=== PATIENT | male | born 1950 | race Caucasian/White ===

== ENCOUNTER 2020-09-22 09:59 | Inpatient (IN) | payer MEDICARE, SELFPAY ==
[2020-09-22] VITALS (8 sets, daily range): BP systolic 105–130; BP diastolic 53–93; PULSE 74–91; RESP 18–26; TEMP 36.3–38.3; O2SAT 90–95; BMI 25.4
--- NOTE | ~2020-09-22 | XR_ITS ---
EXAMINATION: XR chest 1V portable DATE: 09/22/2020 13:07 INDICATION: Shortness of breath. TECHNIQUE: A single frontal view of the chest was obtained. COMPARISON: Chest CT 10/30/15 FINDINGS: There are airspace and interstitial opacities in all lung zones bilaterally with a peripher al predominance with relative sparing of the lung apices. No pleural effusion or pneumothorax. The he art size is normal. There is a left subclavian port with tip in right atrium. IMPRESSION: 1. Diffuse lung disease, consistent with COVID-19 pneumonia. Reviewed, dictated and finalized at location A. APPLICATION DEVELOPER
--- NOTE | ~2020-09-22 | XR_ITS ---
EXAMINATION: XR chest 1V portable DATE: 09/30/2020 15:59 INDICATION: Transient alteration of awareness. TECHNIQUE: A single frontal view of the chest was obtained. COMPARISON: Chest single view 09/27/2020, 09/22/2020, chest CT 10/30/15 FINDINGS: There are airspace and interstitial opacities in all lung zones bilaterally. No pleural eff usion or pneumothorax. The heart size is normal. There is a left subclavian port with tip in right at rium. IMPRESSION: 1. Worsened diffuse lung disease, consistent with COVID-19 pneumonia. Reviewed, dictated and finalized at location A. EL OPENER
--- NOTE | ~2020-09-22 | XR_ITS ---
EXAMINATION: XR chest 1V portable DATE: 09/27/2020 08:30 INDICATION: COVID pneumonia TECHNIQUE: 09/22/2020 COMPARISON: Chest radiograph dated 09/22/2020 FINDINGS: Again seen are bilateral peripheral predominant reticular and patchy groundglass opacities throughout both lungs. There appears be slight improvement in the left mid to lower lung zone. No pleural effus ion or pneumothorax. The cardiomediastinal silhouette is normal. Left subclavian central venous port catheter with distal tip near the superior cavoatrial junction. IMPRESSION: 1. Diffuse bilateral lung disease consistent with COVID 19 pneumonia with slight improvement in the l eft mid and lower lung zones. Reviewed, dictated and finalized at location A. TIC MAKER IMPRESSION: 1. Diffuse bilateral lung disease consistent with COVID 19 pneumonia with sligh t improvement in the left mid and lower lung zones.
--- NOTE | 2020-09-22 11:17 | ECG_ITS ---
Measurements Intervals [place] Rate: 100 P: -66 PA: 113 QRS: 24 QRSD: 92 T: 56 QT: 315 QTc: 407 Interpretive Statements ECTOPIC ATRIAL TACHYCARDIA POSSIBLE LEFT ATRIAL ENLARGEMENT DELAYED PRECORDIAL R/S TRANSITION BASELINE WANDER- I, II, III, AVR, AVL, AVF ABNORMAL ECG Electronically Signed On 09-22-2020 11:25:32 BACK UP WORKER by Sandip Tolentino D.O.
--- NOTE | 2020-09-22 12:29 | ED.SOB ---
HPI - SOB/Dyspnea General Chief Complaint: Shortness of Breath/Dyspnea Stated Complaint: COVID+ LOW O2 SATS Time Seen by Provider: 09/22/20 10:19 Source: patient Mode of arrival: other ([facility] de[facility]) Limitations: no limitations History of Present Illness HPI Narrative: A 70-year-old male presents to the emergency department with complaints of fever, chills, shortness of breath and cough. Patient also notes that he is having headache and body aches. Patient notes that he was diagnosed as Covid positive. He states that his shortness of breath has been increasing. Patient states that he is concerned because he has a history of lung cancer and has had a partial lobectomy of his left lung. Related Data Allergies Allergy/AdvReac Type Severity Reaction Status Date / Time adhesive Allergy Unknown RASH Unverified 10/14/14 11:47 strawberry Allergy Unknown TONGUE Unverified 10/14/14 11:47 SWELLING Review of Systems Review of Systems: Narrative: CONSTITUTIONAL: Endorses fever, chills, fatigue and general malaise. EYES: Denies visual changes, redness, or discharge. ENT: Denies rhinorrhea, congestion, sore throat, or otalgia. CARDIOVASCULAR: Denies chest pain, palpitations, or edema. RESPIRATORY: Endorses cough and dyspnea. GASTROINTESTINAL: Denies abdominal pain, nausea, vomiting, or diarrhea. GENITOURINARY: Denies dysuria or hematuria. SKIN: Denies rash or itching. MUSCULOSKELETAL: Endorses general myalgias. NEUROLOGIC: Denies headache, numbness, dizziness, or weakness. PSYCHIATRIC: Denies anxiety or depression. Exam Narrative: Exam Narrative: GENERAL: Well-appearing, well-nourished, and in no acute distress. HEAD: Normocephalic, atraumatic. EYES: PERRLA and EOMI. ENT: Nares clear, no rhinorrhea or epistaxis. Mucous membranes moist. Oropharynx without tonsillar hypertrophy exudate or other lesions. Bilateral TMs pearly sawant nonbulging NECK: Supple. No adenopathy or masses. No carotid bruits or JVD CHEST: Clear to auscultation. No respiratory distress. No wheezes rales or rhonchi HEART: Regular rate and rhythm. No murmur heard. Normal peripheral pulses. ABDOMEN: Soft, nontender, nondistended, normal active bowel sounds. EXTREMITIES: Normal range of motion. No edema. SKIN: Warm, dry, no rash. NEURO: No focal deficits. Alert and oriented x3. PSYCH: Normal mood and affect. Course Reevaluation(s) Reevaluation #1: Patient complaining that his oxygen was turned up too high. I explained to him that even as high as his oxygen is his pulse ox is in the low 90s. Patient satisfied with this answer states that he would tolerate it. Informed him that because of his oxygen demand he will be staying in the hospital. Time: 14:40 Consultations Consultation #1: Presentation, evaluation and work-up discussed with [facility] hospitalist UL[facility]. She agrees to accept patient for admission for further work-up and evaluation. Time: 14:46 Vital Signs Vital signs: Vital Signs Temperature 38.3 C H 09/22/20 10:39 Pulse Rate 91 09/22/20 10:39 Respiratory Rate 21 H 09/22/20 10:39 Blood Pressure 115/69 09/22/20 10:39 Pulse Oximetry 91 09/22/20 10:39 Temperature 38.3 C H 09/22/20 10:39 Pulse Rate 90 09/22/20 13:01 Respiratory Rate 23 H 09/22/20 13:01 Blood Pressure 130/70 09/22/20 13:01 Pulse Oximetry 90 09/22/20 13:01 MDM - SOB/Dyspnea MDM Narrative Medical decision making narrative: In brief this is a 70-year-old male who presented to the emergency department with complaints of shortness of breath. Patient was known to be Covid positive. He had been tolerating well up until this point. His oxygen demands have increased. Patient was worked up and evaluated, treated symptomatically and unfortunately only continued to decline in require more oxygen. He will require further admission to the hospital for oxygen administration and closer monitoring. Medical Records Attestation: I reviewed the patient's medical records. Lab
[2020-09-22] MEDS: DEXAMETHASONE SOD PHOS INJ 4 MG/ML VIAL 6 MG IV PUSH (12:31)
[2020-09-22] MEDS: ALBUTEROL SULFATE NEB 2.5 MG/0.5 ML INH 5 MG INHALATION (12:54)
[2020-09-22] MEDS: IPRATROPIUM BR 0.02% INH SOLN 0.5 MG/2.5 ML VIAL 1 MG INHALATION (12:55)
[2020-09-22 13:36] LABS: Basophils Percent Auto 0.2 % (0.2-1.2); Hematocrit 42.8 % (42.0-52.0); Hemoglobin 14.8 g/dL (14.0-18.0); Lymphocytes Absolute Auto 0.78 K/mm3 (0.9-3.2); Lymphocytes Percent Auto 8.2 % (18.3-44.2); Mean Corpuscular HGB Conc 34.6 g/dl (32-36); Mean Corpuscular Volume 83.9 fl (80-100); Mean Platelet Volume 9.3 fl (7.4-10.4); Monocytes Absolute Auto 0.7 K/mm3 (0.1-0.6); Monocytes Percent Auto 7.3 % (2.6-8.5); Neutrophils Percent Auto 83.3 % (45.5-73.1); Platelet Count Result 216 k/mm3 (150-375); Red Cell Distribution Width 13.8 % (11.5-14.5); White Blood Count 9.6 K/mm3 (4.5-10.0)
[2020-09-22 13:50] LABS: Alanine Aminotransferase 18 U/L (4-50); Albumin Level 3.5 g/dL (3.5-5.1); Alkaline Phosphatase 88 U/L (38-126); Anion Gap 8 mmol/L (8-16); Aspartate Amino Transferase 48 U/L (17-59); Bilirubin,Total 0.8 mg/dL (0.2-1.3); Blood Urea Nitrogen 18 mg/dL (9-20); Calcium 8.1 mg/dL (8.4-10.2); Carbon Dioxide 27 mmol/L (22-30); Chloride 95 mmol/L (98-107); Estimated CRCL calculation 65 ml/min; Estimated Glomerular Filt Rate > 60; Glucose 109 mg/dL (75-110); Potassium 3.3 mmol/L (3.4-5.0); Sodium 130 mmol/L (137-145)
--- NOTE | 2020-09-22 14:00 | PC.NURSE ---
This RN into pts room. Pt O2 was at 88% at 4L.( respiratory had placed pt on 4L) This RN increased pts O2 to 5L going to 91%
--- NOTE | 2020-09-22 17:02 | PC.NURSE ---
Called to give report on pt. Was told by Maya that nurse was in middle of a transfer and will call me back
--- NOTE | 2020-09-22 17:44 | ADMGEN ---
This patient, Abdifatah Sun, was admitted to [facility] Surg Room 328-01. Patient/family oriented to hospital policies and general routines including ID bracelet, bed and alarms, visiting hours, pain management, procedures, bathroom and other care routines, personal items, smoking policy, room service/diet, and visiting hours. Information on how to activate the Rapid Response Team has been discussed. Patient/Family are encouraged to report perceived risks to care and to ask questions if they do not understand what they are told or what they should do.
--- NOTE | 2020-09-22 18:00 | PM.IMHP ---
H&P: HPI History of Present Illness Date/Time: 09/22/20 18:00 Chief Complaint: Cough and shortness of breath. Narrative: This is a 70-year-old male smoker with history of bladder cancer status post chemotherapy, lung cancer status post resection, COPD, and hypertension who presented to the emergency department earlier today via the newspaper writer's department for evaluation of cough and shortness of breath. He is currently incarcerated and there have been numerous cases of COVID at that facility. The patient was diagnosed with COVID sometime last week and unfortunately he continues to feel worse. Symptoms include headache, body aches, fever, chills, nonproductive cough, and shortness of breath. He has also had decreased appetite, a decreased sense of taste, and some diarrhea. He denies chest pain, pleuritic pain, palpitations, and vomiting. Review of Systems Review of Systems: Narrative: 12 systems were reviewed with pertinent positives and negatives as per HPI. He has a mild headache. No vertigo. Chronic mild tinnitus. No dysphagia or concerns for aspiration. Except as documented, all other systems were reviewed and are negative. [facility] Past Medical History Medical History (Updated 09/22/20 @ 21:51 by Deisy Leon PA-C) Abdominal aortic aneurysm Status post endovascular repair. Anxiety Benign prostatic hyperplasia Bladder cancer Status post TURBT and chemotherapy. Chronic obstructive pulmonary disease Gout Hyperlipidemia Hypertension Kidney stones Lung cancer Status post partial lobectomy. Osteoarthritis Spinal stenosis Surgical History Surgical History (Updated 09/22/20 @ 21:40 by Deisy Leon PA-C) History of bladder surgery Resection of bladder tumor. History of carpal tunnel release of both wrists History of cystoscopy History of decompression of ulnar nerve History of endovascular stent graft for abdominal aortic aneurysm History of lithotripsy Status post partial lobectomy of lung Family History Family History (Updated 09/22/20 @ 21:41 by Deisy Leon PA-C) Other Heart disease Hypertension Social History Social History (Updated 09/22/20 @ 21:42 by Deisy Leon PA-C) Social History: The patient lives in [place]. He smoked 1 to 2 packs of cigarettes a day for about 50+ years. No significant alcohol use. Uses medical marijuana. His daughter Nicole Bello is his healthcare power of attorney law clerk and he wishes to be a full code. Smoking status: Former smoker Tobacco type: cigarettes Smoking end date: 03/07/20 Alcohol intake: never Substance use: former Substance use type: marijuana Other substance usage details: medical marijuana Gender identity (if verbalized by the patient): Male Sexual Orientation (if Verbalized by the Patient): Straight or Heterosexual Spiritual care concerns: No Meds Home Medications and Allergies Home Medications Medication Instructions Recorded Confirmed Type allopurinol 300 mg DAILY 09/22/20 09/22/20 History alprazolam [Xanax] 1 mg PO TID 09/22/20 09/22/20 History atorvastatin 40 mg PO DAILY 09/22/20 09/22/20 History citalopram 20 mg PO DAILY 09/22/20 09/22/20 History hydrochlorothiazide 12.5 mg PO EVERY OTHER DAY 09/22/20 09/22/20 History hydrocodone-acetaminophen [Binger] 325 tablet PO PRN 09/22/20 09/22/20 History nortriptyline [Pamelor] 10 mg PO DAILY 09/22/20 09/22/20 History Allergies Allergy/AdvReac Type Severity Reaction Status Date / Time adhesive Allergy Unknown RASH Verified 09/22/20 18:03 strawberry Allergy Unknown TONGUE Verified 09/22/20 18:03 SWELLING Vital Signs Vital Signs - 24 hr 09/22/20 10:39 09/22/20 12:30 09/22/20 12:55 Temperature 100.9 F H Pulse Rate 91 88 88 Respiratory Rate 21 H 24 H 26 H Blood Pressure 115/69 112/93 H Pulse Oximetry 91 92 09/22/20 13:01 09/22/20 15:42 09/22/20 17:58 Temperature 99.0 F Pulse Rate 90 87 84 Respiratory Rate 23 H 25 H 20 B
[2020-09-22 18:10] LABS: Troponin I 0.014 ng/mL (0.000-0.034)
[2020-09-22 20:52] LABS: Troponin I < 0.012 ng/mL (0.000-0.034)
[2020-09-22] MEDS: POTASSIUM CHLORIDE 20 MEQ TABLET PO (22:49)
[2020-09-22] MEDS: HYDROcodone/acetaminophen (*CRX) 7.5-325 MG TABLET 1 TAB PO (23:27)
[2020-09-23] VITALS (7 sets, daily range): BP systolic 110–126; BP diastolic 52–63; PULSE 62–87; RESP 16–20; TEMP 36.4–36.5; O2SAT 90–94
[2020-09-23] MEDS: REMDESIVIR 200 MG/NS 250 ML 200 MG/250 ML BAG 250 MG IVPB
[2020-09-23] MEDS: ALBUTEROL SULFATE (*SP) AEROSOL 1 PUFF 6 PUFF INHALATION ×5 (00:51→20:16)
[2020-09-23] MEDS: HYDROcodone/acetaminophen (*CRX) 7.5-325 MG TABLET 1 TAB PO ×2 (05:47→14:10)
[2020-09-23 06:14] LABS: Basophils Percent Auto 0.1 % (0.2-1.2); Hematocrit 40.3 % (42.0-52.0); Hemoglobin 13.8 g/dL (14.0-18.0); Immature Granulocyte Absolute 0.11 K/mm3 (0.00-0.031); Immature Granulocyte Percent A 1.3 % (0-0.5); Lymphocytes Absolute Auto 0.44 K/mm3 (0.9-3.2); Lymphocytes Percent Auto 5.3 % (18.3-44.2); Mean Corpuscular HGB Conc 34.2 g/dl (32-36); Mean Corpuscular Hemoglobin 28.9 pg (26-34); Mean Corpuscular Volume 84.3 fl (80-100); Mean Platelet Volume 9.7 fl (7.4-10.4); Monocytes Absolute Auto 0.7 K/mm3 (0.1-0.6); Monocytes Percent Auto 8.7 % (2.6-8.5); Neutrophils Percent Auto 84.6 % (45.5-73.1); Platelet Count Result 235 k/mm3 (150-375); Red Blood Count 4.78 M/mm3 (4.6-6.20); Red Cell Distribution Width 13.7 % (11.5-14.5); White Blood Count 8.3 K/mm3 (4.5-10.0)
[2020-09-23 07:15] LABS: Alanine Aminotransferase 20 U/L (4-50); Albumin Level 3.2 g/dL (3.5-5.1); Alkaline Phosphatase 75 U/L (38-126); Anion Gap 5 mmol/L (8-16); Aspartate Amino Transferase 45 U/L (17-59); Bilirubin,Total 0.6 mg/dL (0.2-1.3); Blood Urea Nitrogen 22 mg/dL (9-20); Calcium 8.1 mg/dL (8.4-10.2); Carbon Dioxide 28 mmol/L (22-30); Chloride 98 mmol/L (98-107); Estimated CRCL calculation 65 ml/min; Estimated Glomerular Filt Rate > 60; Glucose 171 mg/dL (75-110); Magnesium 2.4 mg/dL (1.6-2.3); Potassium 3.4 mmol/L (3.4-5.0); Sodium 131 mmol/L (137-145)
[2020-09-23 07:23] LABS: CRP 21.5 mg/dL (<1.0)
[2020-09-23] MEDS: DEXAMETHASONE 2 MG TABLET 6 MG PO (08:28)
[2020-09-23] MEDS: ALPRAZolam (*CRX) 0.5 MG TABLET 1 MG PO (08:28)
[2020-09-23] MEDS: NORTRIPTYLINE HCL 10 MG CAPSULE PO (08:29)
[2020-09-23] MEDS: ATORVASTATIN 40 MG TABLET PO (08:29)
[2020-09-23] MEDS: CITALOPRAM HYDROBROMIDE 20 MG TABLET PO (08:29)
[2020-09-23] MEDS: allopurinoL 300 MG TABLET BY MOUTH (08:29)
[2020-09-23 09:13] LABS: Lactate Dehydrogenase 1319 U/L (313-618)
--- NOTE | 2020-09-23 15:18 | PM.IMPN ---
Progress Note: A&P Assessment and Plan (1) Acute respiratory failure with hypoxia: Code(s): J96.01 - Acute respiratory failure with hypoxia Status: Acute (2) Pneumonia due to COVID-19 virus: Code(s): U07.1 - COVID-19; J12.82 - Pneumonia due to coronavirus disease 2018 Status: Acute Assessment and Plan: Pt is on remdesvir, steroids and oxygen Covid pneumonia as per CXR (3) Hyponatremia: Code(s): E87.1 - Hypo-osmolality and hyponatremia Status: Acute Assessment and Plan: sodium is 135 (4) Hypokalemia: Code(s): E87.6 - Hypokalemia Status: Resolved (5) Hypertension: Code(s): I10 - Essential (primary) hypertension Status: Acute Assessment and Plan: Bp medications have been corrected continue as before (6) Chronic obstructive pulmonary disease: Code(s): J44.9 - Chronic obstructive pulmonary disease, unspecified Status: Inactive Assessment and Plan: Pt is on a inhaler (7) Anxiety: Code(s): F41.9 - Anxiety disorder, unspecified Status: Acute Assessment and Plan: Pt is on Nortriptyline Subjective Date/time seen: 09/23/20 15:18 Interval history: 70-year-old male smoker with history of bladder cancer status post chemotherapy, lung cancer status post resection, COPD, and hypertension who presented to the emergency department earlier today via the [employer] consultant's department for evaluation of cough and shortness of breath. Covid positive. on 2 liters of oxygen. Review of Systems Review of Systems: All systems reviewed & are unremarkable except as noted in HPI and below Exam Narrative: Exam Narrative: General: Man chronically ill appearing Respiratory: Speaking in full sentences. Cardiovascular: Regular rate and rhythm with S1-S2. Gastrointestinal: Abdomen is soft, nontender, and nondistended with positive bowel sounds. Skin: Warm and dry. No rash or lesions on limited exam. Extremities: No cyanosis, clubbing, or edema. Left wrist and right ankle are in cuffs. Neurological: Alert. Cranial nerves 2-12 are grossly intact. No gross focal deficits to casual conversation. Psychiatric: Pleasant and cooperative with normal mood and affect. Judgment and insight intact. Objective Data Vital Signs Vital Signs: Vital Signs - 24 hr 09/22/20 15:42 09/22/20 17:58 09/22/20 20:00 Temperature 37.2 C 36.3 C L Pulse Rate 87 84 85 Respiratory Rate 25 H 20 18 Blood Pressure 124/77 127/70 106/53 L Pulse Oximetry 90 95 91 09/22/20 23:58 09/23/20 00:00 09/23/20 04:00 Temperature 36.4 C L 36.5 C Pulse Rate 74 82 87 Respiratory Rate 18 18 Blood Pressure 105/60 114/53 L Pulse Oximetry 91 94 09/23/20 08:00 09/23/20 12:00 09/23/20 13:00 Temperature 36.4 C 36.4 C L Pulse Rate 62 82 Respiratory Rate 18 16 Blood Pressure 120/62 110/63 Pulse Oximetry 90 94 93 Intake/Output Intake/Output: Intake & Output 09/20/20 09/21/20 09/22/20 09/23/20 23:59 23:59 23:59 23:59 Intake Total 240 1430 Output Total 100 Balance 240 1330 Meds/Results Medications: Active Medications Generic Name Dose Route Start Last Admin Trade Name Freq PRN Reason Stop Dose Admin Hydrocodone Bitart/Acetaminophen 1 tab 09/22/20 23:16 09/23/20 14:10 Hydrocodone/Acetaminophen (*Crx) 7.5-325 Mg Tablet PO 1 tab Q6H PRN Administration Pain Rated 7-10 Albuterol 6 puff 09/23/20 00:05 09/23/20 12:53 Albuterol Sulfate (*Sp) Aerosol 1 Puff INHALATION 6 puff QIDRT [facility] Administration Allopurinol 300 mg 09/23/20 08:00 09/23/20 08:29 Allopurinol 300 Mg Tablet BY MOUTH 300 mg DAILY@0800 [facility] Administration Alprazolam 1 mg 09/23/20 09:00 09/23/20 13:02 Alprazolam (*Crx) 0.5 Mg Tablet PO Not Given TID [facility] Atorvastatin Calcium 40 mg 09/23/20 09:00 09/23/20 08:29 Atorvastatin 40 Mg Tablet PO 40 mg DAILY [facility] Administration Citalopram Hydrobromide 20 mg
[2020-09-23] MEDS: ENOXAPARIN 40 MG/0.4 ML SYRINGE SUB-Q (20:15)
[2020-09-23] MEDS: REMDESIVIR 100 MG/NS 250 ML 100 MG/250 ML BAG 250 MG IVPB (22:05)
[2020-09-24] VITALS (7 sets, daily range): BP systolic 105–138; BP diastolic 47–63; PULSE 60–108; RESP 20; TEMP 36.4–36.6; O2SAT 90
--- NOTE | 2020-09-24 06:14 | PC.NURSE ---
Patient had been requesting [employer]. Officer allowed him one and stated that he didn't want him to have special privileges. A woman stating that she is his sister said she wanted to talk to him and that she typically talks to him nightly. military police officer again stated that he didn't want friends and family to know where he is. He rated his pain 4/10 at the highest, not qualifying for [place] according to parameters. Officer stated that he would prefer that he not get any opioids while he was here ether.
[2020-09-24 06:30] LABS: Alanine Aminotransferase 19 U/L (4-50); Albumin Level 3.1 g/dL (3.5-5.1); Alkaline Phosphatase 87 U/L (38-126); Anion Gap 1 mmol/L (8-16); Aspartate Amino Transferase 34 U/L (17-59); Bilirubin,Total 0.6 mg/dL (0.2-1.3); Blood Urea Nitrogen 27 mg/dL (9-20); Calcium 8.4 mg/dL (8.4-10.2); Carbon Dioxide 32 mmol/L (22-30); Chloride 102 mmol/L (98-107); Estimated CRCL calculation 65 ml/min; Estimated Glomerular Filt Rate > 60; Glucose 152 mg/dL (75-110); Potassium 3.7 mmol/L (3.4-5.0); Sodium 135 mmol/L (137-145)
[2020-09-24] MEDS: ALBUTEROL SULFATE (*SP) AEROSOL 1 PUFF 6 PUFF INHALATION ×4 (09:48→20:34)
[2020-09-24] MEDS: ENOXAPARIN 40 MG/0.4 ML SYRINGE SUB-Q ×2 (09:48→20:34)
[2020-09-24] MEDS: amLODIPine BESYLATE 2.5 MG TABLET PO (09:48)
[2020-09-24] MEDS: DEXAMETHASONE 2 MG TABLET 6 MG PO (09:48)
[2020-09-24] MEDS: HYDROcodone/acetaminophen (*CRX) 7.5-325 MG TABLET 1 TAB PO (10:32)
[2020-09-24] MEDS: TAMSULOSIN HCL 0.4 MG CAPSULE PO (12:45)
[2020-09-24] MEDS: REMDESIVIR 100 MG/NS 250 ML 100 MG/250 ML BAG 250 MG IVPB (21:20)
[2020-09-25] VITALS: BP 156/63; PULSE 83; PULSE 88; RESP 16; TEMP 36.3; O2SAT 92
[2020-09-25 04:00] VITALS: BP 120/63; PULSE 66; PULSE 93; RESP 18; TEMP 36; O2SAT 91
[2020-09-25 07:04] LABS: Alkaline Phosphatase 88 U/L (38-126); Anion Gap 9 mmol/L (8-16); Aspartate Amino Transferase 33 U/L (17-59); Bilirubin,Total 0.7 mg/dL (0.2-1.3); Blood Urea Nitrogen 23 mg/dL (9-20); Calcium 8.4 mg/dL (8.4-10.2); Carbon Dioxide 27 mmol/L (22-30); Chloride 102 mmol/L (98-107); Estimated CRCL calculation 71 ml/min; Estimated Glomerular Filt Rate > 60; Glucose 117 mg/dL (75-110); Potassium 3.6 mmol/L (3.4-5.0); Sodium 138 mmol/L (137-145)
[2020-09-25 07:05] LABS: Alanine Aminotransferase 22 U/L (4-50)
[2020-09-25 08:00] VITALS: BP 133/69; PULSE 68; PULSE 90; RESP 18; TEMP 36.4; O2SAT 90
[2020-09-25] MEDS: ALBUTEROL SULFATE (*SP) AEROSOL 1 PUFF 6 PUFF INHALATION ×4 (08:11→21:12)
[2020-09-25] MEDS: DEXAMETHASONE 2 MG TABLET 6 MG PO (08:15)
[2020-09-25] MEDS: amLODIPine BESYLATE 2.5 MG TABLET PO (08:15)
[2020-09-25] MEDS: TAMSULOSIN HCL 0.4 MG CAPSULE PO (08:15)
[2020-09-25] MEDS: ENOXAPARIN 40 MG/0.4 ML SYRINGE SUB-Q ×2 (08:15→21:13)
[2020-09-25] MEDS: FLUTICASONE PROP 110 MCG INHALER 12 GM (*SP) 2 PUFF INHALATION ×2 (08:16→21:14)
[2020-09-25] MEDS: HYDROcodone/acetaminophen (*CRX) 7.5-325 MG TABLET 1 TAB PO ×2 (10:20→17:38)
[2020-09-25 12:00] VITALS: BP 125/69; PULSE 73; PULSE 91; RESP 20; TEMP 36.7; O2SAT 92
[2020-09-25 16:00] VITALS: BP 128/78; PULSE 79; PULSE 82; RESP 18; TEMP 36.7; O2SAT 90
--- NOTE | 2020-09-25 17:14 | PM.IMPN ---
Progress Note: A&P Assessment and Plan (1) Acute respiratory failure with hypoxia: Code(s): J96.01 - Acute respiratory failure with hypoxia Status: Acute Assessment and Plan: Pt is needing 4-5 liters, advised prone positioning. Covid + lung cancer + COPD (2) Pneumonia due to COVID-19 virus: Code(s): U07.1 - COVID-19; J12.82 - Pneumonia due to coronavirus disease 2018 Status: Acute Assessment and Plan: Pt is on remdesvir, steroids and oxygen Covid pneumonia as per CXR Monitor lfts (3) Hyponatremia: Code(s): E87.1 - Hypo-osmolality and hyponatremia Status: Acute Assessment and Plan: sodium is 138, monitor kidney function (4) Hypokalemia: Code(s): E87.6 - Hypokalemia Status: Resolved (5) Hypertension: Code(s): I10 - Essential (primary) hypertension Status: Chronic Assessment and Plan: Bp medications have been corrected continue as before (6) Chronic obstructive pulmonary disease: Code(s): J44.9 - Chronic obstructive pulmonary disease, unspecified Status: Inactive Assessment and Plan: Pt is on a inhaler (7) Anxiety: Code(s): F41.9 - Anxiety disorder, unspecified Status: Chronic Assessment and Plan: Pt is on Nortriptyline Subjective Date/time seen: 09/25/20 17:14 Interval history: 70-year-old male smoker with history of bladder cancer status post chemotherapy, lung cancer status post resection, COPD, and hypertension who presented to the emergency department earlier today via the yield loss inspector's department for evaluation of cough and shortness of breath. Covid positive. pt is on oxygen at 5 liters of oxygen, on steroids on 3rd day of remdesivir, advised prone positioning. Review of Systems Review of Systems: All systems reviewed & are unremarkable except as noted in HPI and below Exam Narrative: Exam Narrative: General: Man chronically ill appearing Respiratory: Speaking in full sentences. Cardiovascular: Regular rate and rhythm with S1-S2. Gastrointestinal: Abdomen is soft, nontender, and nondistended with positive bowel sounds. Skin: Warm and dry. No rash or lesions on limited exam. Extremities: No cyanosis, clubbing, or edema. Left wrist and right ankle are in cuffs. Neurological: Alert. Cranial nerves 2-12 are grossly intact. No gross focal deficits to casual conversation. Psychiatric: Pleasant and cooperative with normal mood and affect. Judgment and insight intact. Objective Data Vital Signs Vital Signs: Vital Signs - 24 hr 09/24/20 20:00 09/25/20 00:00 09/25/20 04:00 Temperature 36.4 C 36.3 C L 36.0 C L Pulse Rate 64 88 93 Respiratory Rate 20 16 18 Blood Pressure 126/60 156/63 H 120/63 Pulse Oximetry 90 92 91 09/25/20 08:00 09/25/20 12:00 09/25/20 16:00 Temperature 36.4 C 36.7 C Pulse Rate 68 73 79 Respiratory Rate 18 20 Blood Pressure 133/69 125/69 Pulse Oximetry 90 92 Intake/Output Intake/Output: Intake & Output 09/22/20 09/23/20 09/24/20 09/25/20 23:59 23:59 23:59 23:59 Intake Total 240 2710 2720 440 Output Total 600 200 300 Balance 240 2110 2520 140 Meds/Results Medications: Active Medications Generic Name Dose Route Start Last Admin Trade Name Freq PRN Reason Stop Dose Admin Hydrocodone Bitart/Acetaminophen 1 tab 09/22/20 23:16 09/25/20 10:20 Hydrocodone/Acetaminophen (*Crx) 7.5-325 Mg Tablet PO 1 tab Q6H PRN Administration Pain Rated 7-10 Albuterol 6 puff 09/23/20 00:05 09/25/20 12:20 Albuterol Sulfate (*Sp) Aerosol 1 Puff INHALATION 6 puff QIDRT [facility] Administration Albuterol 2 puff 09/23/20 17:45 Albuterol Sulfate (*Sp) Aerosol 1 Puff INHALATION Q6H PRN Shortness Of Breath Amlodipine Besylate 2.5 mg 09/24/20 09:00 09/25/20 08:15 Amlodipine Besylate 2.5 Mg Tablet PO 2.5 mg DAILY [facility] Administration Dexamethasone 6 mg 09/23/20 08:00 09/25/20 08:15 Dexamethaso
--- NOTE | 2020-09-25 17:16 | PM.IMPN ---
Progress Note: A&P Assessment and Plan (1) Acute respiratory failure with hypoxia: Code(s): J96.01 - Acute respiratory failure with hypoxia Status: Acute Assessment and Plan: Pt is needing 4 liters, advised prone positioning. Covid + lung cancer + COPD (2) Pneumonia due to COVID-19 virus: Code(s): U07.1 - COVID-19; J12.82 - Pneumonia due to coronavirus disease 2018 Status: Acute Assessment and Plan: Pt is on remdesvir, steroids and oxygen Covid pneumonia as per CXR Monitor lfts (3) Hyponatremia: Code(s): E87.1 - Hypo-osmolality and hyponatremia Status: Acute Assessment and Plan: sodium is 135, monitor kidney function (4) Hypokalemia: Code(s): E87.6 - Hypokalemia Status: Resolved (5) Hypertension: Code(s): I10 - Essential (primary) hypertension Status: Chronic Assessment and Plan: Bp medications have been corrected continue as before (6) Chronic obstructive pulmonary disease: Code(s): J44.9 - Chronic obstructive pulmonary disease, unspecified Status: Inactive Assessment and Plan: Pt is on a inhaler (7) Anxiety: Code(s): F41.9 - Anxiety disorder, unspecified Status: Chronic Assessment and Plan: Pt is on Nortriptyline Subjective Date/time seen: 09/25/20 17:16 Interval history: 70-year-old male smoker with history of bladder cancer status post chemotherapy, lung cancer status post resection, COPD, and hypertension who presented to the emergency department earlier today via the hris specialist's department for evaluation of cough and shortness of breath. Covid positive. pt is on oxygen and 4 liters of oxygen and on remdesivir day 2 continue. Advised prone positioning. Pt looks unwell with cough and sob. Review of Systems Review of Systems: All systems reviewed & are unremarkable except as noted in HPI and below Exam Const: General: cooperative and healthy appearing; No in distress Nutritional Appearance: overweight Orientation/consciousness: oriented to person HENMT: Head: normal to inspection Resp: Effort & Inspection: no respiratory distress GI: Inspection: normal to inspection GI Palp: No abdominal tenderness, No Guarding due to palpation present (GI) and No Hepatomegaly present Auscultation: normal bowel sounds Neuro: General: oriented to person Objective Data Vital Signs Vital Signs: Vital Signs - 24 hr 09/24/20 20:00 09/25/20 00:00 09/25/20 04:00 Temperature 36.4 C 36.3 C L 36.0 C L Pulse Rate 64 88 93 Respiratory Rate 20 16 18 Blood Pressure 126/60 156/63 H 120/63 Pulse Oximetry 90 92 91 09/25/20 08:00 09/25/20 12:00 09/25/20 16:00 Temperature 36.4 C 36.7 C Pulse Rate 68 73 79 Respiratory Rate 18 20 Blood Pressure 133/69 125/69 Pulse Oximetry 90 92 Intake/Output Intake/Output: Intake & Output 09/22/20 09/23/20 09/24/20 09/25/20 23:59 23:59 23:59 23:59 Intake Total 240 2710 2720 440 Output Total 600 200 300 Balance 240 2110 2520 140 Meds/Results Medications: Active Medications Generic Name Dose Route Start Last Admin Trade Name Freq PRN Reason Stop Dose Admin Hydrocodone Bitart/Acetaminophen 1 tab 09/22/20 23:16 09/25/20 10:20 Hydrocodone/Acetaminophen (*Crx) 7.5-325 Mg Tablet PO 1 tab Q6H PRN Administration Pain Rated 7-10 Albuterol 6 puff 09/23/20 00:05 09/25/20 12:20 Albuterol Sulfate (*Sp) Aerosol 1 Puff INHALATION 6 puff QIDRT [facility] Administration Albuterol 2 puff 09/23/20 17:45 Albuterol Sulfate (*Sp) Aerosol 1 Puff INHALATION Q6H PRN Shortness Of Breath Amlodipine Besylate 2.5 mg 09/24/20 09:00 09/25/20 08:15 Amlodipine Besylate 2.5 Mg Tablet PO 2.5 mg DAILY [facility] Administration Dexamethasone 6 mg 09/23/20 08:00 09/25/20 08:15 Dexamethasone 2 Mg Tablet PO 10/02/20 08:01 6 mg DAILY@0800 [facility] Administration Enoxaparin Sodium 40 mg 09/23/20 21:00 09/25/20 08:15
[2020-09-25 20:00] VITALS: BP 142/71; PULSE 70; PULSE 80; PULSE 97; RESP 16; RESP 18; TEMP 36.4; O2SAT 91; O2SAT 92
[2020-09-25] MEDS: REMDESIVIR 100 MG/NS 250 ML 100 MG/250 ML BAG 250 MG IVPB (21:13)
[2020-09-26] VITALS (11 sets, daily range): BP systolic 131–174; BP diastolic 66–82; PULSE 66–99; RESP 16–20; TEMP 36.4–37.2; O2SAT 82–93
[2020-09-26 06:53] LABS: Alanine Aminotransferase 24 U/L (4-50); Albumin Level 3.1 g/dL (3.5-5.1); Alkaline Phosphatase 93 U/L (38-126); Anion Gap 0 mmol/L (8-16); Aspartate Amino Transferase 42 U/L (17-59); Blood Urea Nitrogen 20 mg/dL (9-20); Calcium 8.3 mg/dL (8.4-10.2); Carbon Dioxide 31 mmol/L (22-30); Chloride 102 mmol/L (98-107); Estimated CRCL calculation 90 ml/min; Estimated Glomerular Filt Rate > 60; Glucose 111 mg/dL (75-110); Potassium 3.9 mmol/L (3.4-5.0); Sodium 133 mmol/L (137-145)
[2020-09-26] MEDS: amLODIPine BESYLATE 2.5 MG TABLET PO (08:28)
[2020-09-26] MEDS: DEXAMETHASONE 2 MG TABLET 6 MG PO (08:28)
[2020-09-26] MEDS: ENOXAPARIN 40 MG/0.4 ML SYRINGE SUB-Q ×2 (08:28→20:58)
[2020-09-26] MEDS: TAMSULOSIN HCL 0.4 MG CAPSULE PO (08:28)
[2020-09-26] MEDS: ALBUTEROL SULFATE (*SP) AEROSOL 1 PUFF 6 PUFF INHALATION ×4 (08:29→20:59)
[2020-09-26] MEDS: FLUTICASONE PROP 110 MCG INHALER 12 GM (*SP) 2 PUFF INHALATION ×2 (08:29→20:59)
[2020-09-26] MEDS: HYDROcodone/acetaminophen (*CRX) 7.5-325 MG TABLET 1 TAB PO (11:42)
--- NOTE | 2020-09-26 13:17 | PM.IMPN ---
Progress Note: A&P Assessment and Plan (1) Acute respiratory failure with hypoxia: Code(s): J96.01 - Acute respiratory failure with hypoxia Status: Acute Assessment and Plan: Pt is needing 8 liters, advised prone positioning. Covid + lung cancer + COPD (2) Pneumonia due to COVID-19 virus: Code(s): U07.1 - COVID-19; J12.82 - Pneumonia due to coronavirus disease 2019 Status: Acute Assessment and Plan: Pt is on remdesvir, steroids and oxygen, reduce steroids pt feels very anxious Covid pneumonia as per CXR Monitor lfts (3) Hyponatremia: Code(s): E87.1 - Hypo-osmolality and hyponatremia Status: Acute Assessment and Plan: sodium is 133, monitor kidney function (4) Hypokalemia: Code(s): E87.6 - Hypokalemia Status: Resolved (5) Hypertension: Code(s): I10 - Essential (primary) hypertension Status: Chronic Assessment and Plan: Bp medications have been corrected continue as before (6) Chronic obstructive pulmonary disease: Code(s): J44.9 - Chronic obstructive pulmonary disease, unspecified Status: Inactive Assessment and Plan: Pt is on a inhaler (7) Anxiety: Code(s): F41.9 - Anxiety disorder, unspecified Status: Chronic Assessment and Plan: Pt is on Nortriptyline Subjective Date/time seen: 09/26/20 13:17 Interval history: 70-year-old male smoker with history of bladder cancer status post chemotherapy, lung cancer status post resection, COPD, and hypertension who presented to the emergency department earlier today via the skiagrapher's department for evaluation of cough and shortness of breath. Covid positive. pt is on oxygen at 8 liters of oxygen, on steroids on 4th day of remdesivir, advised prone positioning. Order Cxr tomorrow. Pt feels very anxious in the room possible because of steroids. Review of Systems Review of Systems: All systems reviewed & are unremarkable except as noted in HPI and below Exam Narrative: Exam Narrative: General: Man chronically ill appearing, looks anxious Respiratory: Speaking in full sentences. Cardiovascular: Regular rate and rhythm with S1-S2. Gastrointestinal: Abdomen is soft, nontender, and nondistended with positive bowel sounds. Skin: Warm and dry. No rash or lesions on limited exam. Extremities: No cyanosis, clubbing, or edema. Left wrist and right ankle are in cuffs. Neurological: Alert. Cranial nerves 2-12 are grossly intact. No gross focal deficits to casual conversation. Psychiatric: Pleasant and cooperative with normal mood and affect. Objective Data Vital Signs Vital Signs: Vital Signs - 24 hr 09/25/20 16:00 09/25/20 20:00 09/26/20 00:00 Temperature 36.7 C 36.4 C 36.4 C Pulse Rate 82 70 70 Respiratory Rate 18 16 16 Blood Pressure 128/78 142/71 H 131/76 Pulse Oximetry 90 91 91 09/26/20 04:00 09/26/20 08:00 09/26/20 12:00 Temperature 36.5 C 36.9 C 36.8 C Pulse Rate 71 70 99 Respiratory Rate 18 20 20 Blood Pressure 142/82 H 154/71 H 148/66 H Pulse Oximetry 91 92 90 09/26/20 12:12 09/26/20 12:13 Temperature Pulse Rate Respiratory Rate Blood Pressure Pulse Oximetry 82 L 90 Intake/Output Intake/Output: Intake & Output 09/23/20 09/24/20 09/25/20 09/26/20 23:59 23:59 23:59 23:59 Intake Total 2710 2720 1810 1090 Output Total 600 187 773 4619 Balance 2110 2520 1035 -385 Meds/Results Medications: Active Medications Generic Name Dose Route Start Last Admin Trade Name Freq PRN Reason Stop Dose Admin Hydrocodone Bitart/Acetaminophen 1 tab 09/22/20 23:16 09/26/20 11:42 Hydrocodone/Acetaminophen (*Crx) 7.5-325 Mg Tablet PO 1 tab Q6H PRN Administration Pain Rated 7-10 Albuterol 6 puff 09/23/20 00:05 09/26/20 08:29 Albuterol Sulfate (*Sp) Aerosol 1 Puff INHALATION 6 puff QIDRT RIC Administration Albuterol 2 puff 09/23/20 17:45 Albuterol Sulfate (*Sp) Aerosol 1 Puff
[2020-09-26] MEDS: ALPRAZolam (*CRX) 0.5 MG TABLET PO (21:05)
[2020-09-26] MEDS: REMDESIVIR 100 MG/NS 250 ML 100 MG/250 ML BAG 250 MG IVPB (22:49)
[2020-09-26] MEDS: CENTRAL LINE FLUSH 10 ML IV PUSH (22:53)
[2020-09-27] VITALS (8 sets, daily range): BP systolic 121–164; BP diastolic 57–87; PULSE 73–96; RESP 18–20; TEMP 36.4–37.1; O2SAT 91–97
[2020-09-27] MEDS: ALPRAZolam (*CRX) 0.5 MG TABLET PO ×2 (06:08→21:45)
[2020-09-27 07:04] LABS: Hematocrit 42.2 % (42.0-52.0); Hemoglobin 14.6 g/dL (14.0-18.0); Mean Corpuscular HGB Conc 34.6 g/dl (32-36); Mean Corpuscular Volume 83.7 fl (80-100); Mean Platelet Volume 9.7 fl (7.4-10.4); Platelet Count Result 262 k/mm3 (150-375); Red Blood Count 5.04 M/mm3 (4.6-6.20); Red Cell Distribution Width 14.4 % (11.5-14.5); White Blood Count 16.7 K/mm3 (4.5-10.0)
[2020-09-27 07:15] LABS: Alanine Aminotransferase 47 U/L (4-50); Albumin Level 3.1 g/dL (3.5-5.1); Alkaline Phosphatase 96 U/L (38-126); Anion Gap 2 mmol/L (8-16); Aspartate Amino Transferase 64 U/L (17-59); Bilirubin,Total 1.1 mg/dL (0.2-1.3); Blood Urea Nitrogen 18 mg/dL (9-20); Calcium 8.2 mg/dL (8.4-10.2); Carbon Dioxide 30 mmol/L (22-30); Chloride 99 mmol/L (98-107); Estimated CRCL calculation 71 ml/min; Estimated Glomerular Filt Rate > 60; Glucose 113 mg/dL (75-110); Potassium 3.6 mmol/L (3.4-5.0); Sodium 131 mmol/L (137-145)
[2020-09-27] MEDS: amLODIPine BESYLATE 2.5 MG TABLET PO (08:20)
[2020-09-27] MEDS: ENOXAPARIN 40 MG/0.4 ML SYRINGE SUB-Q ×2 (08:21→20:46)
[2020-09-27] MEDS: CENTRAL LINE FLUSH 10 ML IV PUSH ×3 (08:21→21:45)
[2020-09-27] MEDS: DEXAMETHASONE 4 MG TABLET PO (08:21)
[2020-09-27] MEDS: TAMSULOSIN HCL 0.4 MG CAPSULE PO (08:21)
[2020-09-27] MEDS: ALBUTEROL SULFATE (*SP) AEROSOL 1 PUFF 6 PUFF INHALATION ×4 (08:24→20:46)
[2020-09-27] MEDS: FLUTICASONE PROP 110 MCG INHALER 12 GM (*SP) 2 PUFF INHALATION ×2 (08:24→20:47)
[2020-09-27] MEDS: SENNOSIDES 8.6 MG TABLET PO (12:13)
[2020-09-27] MEDS: HYDROcodone/acetaminophen (*CRX) 7.5-325 MG TABLET 1 TAB PO (12:27)
--- NOTE | 2020-09-27 13:27 | PM.IMPN ---
Progress Note: A&P Assessment and Plan (1) Acute respiratory failure with hypoxia: Code(s): J96.01 - Acute respiratory failure with hypoxia Status: Acute Assessment and Plan: Currently requiring 8L Wean oxygen as possible (2) Pneumonia due to COVID-19 virus: Code(s): U07.1 - COVID-19; J12.82 - Pneumonia due to coronavirus disease 2019 Status: Acute Assessment and Plan: Continue dexamethasone and remdesivir through 10/01/2020 Enoxaparin 40mg q 12h (3) Hyponatremia: Code(s): E87.1 - Hypo-osmolality and hyponatremia Status: Acute Assessment and Plan: 09/27 = 133 (4) Hypokalemia: Code(s): E87.6 - Hypokalemia Status: Resolved Assessment and Plan: resolved (5) Hypertension: Code(s): I10 - Essential (primary) hypertension Status: Chronic Assessment and Plan: Continue current regimen (6) Chronic obstructive pulmonary disease: Code(s): J44.9 - Chronic obstructive pulmonary disease, unspecified Status: Inactive Assessment and Plan: Continue current regimen (7) Anxiety: Code(s): F41.9 - Anxiety disorder, unspecified Status: Chronic Assessment and Plan: PRN alprazolam to continue Subjective Date/time seen: 09/27/20 13:27 Interval history: 70-year-old male smoker with history of bladder cancer status post chemotherapy, lung cancer status post resection, COPD, and hypertension who presented to the emergency department 09/22 via the manager quantitative's department for evaluation of cough and shortness of breath. Covid positive. 09/27: He continues on oxygen at 8L. BAINS with any exertion. Tired. Achy. Constipated. Fair appetite. Review of Systems Review of Systems: All systems reviewed & are unremarkable except as noted in HPI and below Exam Narrative: Exam Narrative: HEENT: EOMI, PERRL, sclerae nonicteric, pharyngeal mucosa pink and intact NECK: No JVD, adenopathy, or thyromegaly CHEST: Coarse BS HEART: NL S1/S2, regular, no murmur ABDOMEN: BS+, soft, nontender, no mass, no bruits EXTREMITIES: No cyanosis, edema, or clubbing NEUROLOGIC: CN intact and symmetric to inspection. MUSCULOSKELETAL: Tone and strength symmetric. PSYCH: Alert. Oriented to person, place, and time. Objective Data Vital Signs Vital Signs: Vital Signs - 24 hr 09/26/20 16:00 09/26/20 16:53 09/26/20 20:00 Temperature 98.9 F 97.9 F Pulse Rate 97 96 Respiratory Rate 20 20 Blood Pressure 147/76 H 174/71 H Pulse Oximetry 92 93 92 09/26/20 20:50 09/27/20 00:00 09/27/20 04:00 Temperature 98 F 97.6 F Pulse Rate 96 86 76 Respiratory Rate 20 18 18 Blood Pressure 164/87 H 136/78 Pulse Oximetry 92 92 91 09/27/20 08:00 09/27/20 12:00 Temperature 98.0 F 97.9 F Pulse Rate 77 94 Respiratory Rate 20 20 Blood Pressure 149/81 H 121/73 Pulse Oximetry 93 95 Intake/Output Intake/Output: Intake & Output 09/24/20 09/25/20 09/26/20 09/27/20 23:59 23:59 23:59 23:59 Intake Total 2720 1810 2590 690 Output Total 769 551 1505 500 Balance 2520 1035 815 190 Meds/Results Medications: Active Medications Generic Name Dose Route Start Last Admin Trade Name Freq PRN Reason Stop Dose Admin Hydrocodone Bitart/Acetaminophen 1 tab 09/22/20 23:16 09/27/20 12:27 Hydrocodone/Acetaminophen (*Crx) 7.5-325 Mg Tablet PO 1 tab Q6H PRN Administration Pain Rated 7-10 Albuterol 6 puff 09/23/20 00:05 09/27/20 12:13 Albuterol Sulfate (*Sp) Aerosol 1 Puff INHALATION 6 puff QIDRT RIC Administration Albuterol 2 puff 09/23/20 17:45 Albuterol Sulfate (*Sp) Aerosol 1 Puff INHALATION Q6H PRN Shortness Of Breath Albuterol 5 mg 09/26/20 16:30 Albuterol Sulfate Neb 2.5 Mg/0.5 Ml Inh INHALATION Q6HRT PRN Shortness Of Breath Alprazolam 0.5 mg 09/26/20 15:40 09/27/20 06:08 Alprazolam (*Crx) 0.5 Mg Tablet PO 0.5 mg TID PRN Administration Anxiety Amlodipine Besylate
[2020-09-27 13:40] LABS: Alanine Aminotransferase 47 U/L (4-50); Estimated CRCL calculation 80 ml/min; Estimated Glomerular Filt Rate > 60
--- NOTE | 2020-09-27 21:25 | PM.CNPUL ---
Assessment and Plan Assessment and plan (1) Pneumonia due to COVID-19 virus: Code(s): U07.1 - COVID-19; J12.82 - Pneumonia due to coronavirus disease 2019 Status: Acute Assessment and Plan: - agree with continuing Remdesivir and Dexamethasone for total of 10 days - will add Pulmicort 1.0 mg Nebulized Q12h as there is some preliminary evidence that inhaled corticosteroids early on may help minimize severity of disease. (2) Acute respiratory failure with hypoxia: Code(s): J96.01 - Acute respiratory failure with hypoxia Status: Acute History of Present Illness History of Present Illness Consult date: 09/27/20 Chief complaint: COVID19 pneumonia with hypoxia Narrative: 70 y/o male with long smoking history s/p Left lung resection for primary lung CA and bladder resection for bladder CA presents with flu like symptoms, cough, shortness of breath on 09/22/20 and is has COVID-19 pneumonia. There was an outbreak where he was residing in half-way. He is currently on 8 liters of oxygen by nasal cannula and in no respiratory distress. He's recieved 5 days of Remdesivir and Dexamethasone already. Dexamethasone does was decreased to 4 mg daily because he developed anxiety with the higher dose and reports similar side effects in the past with systemic steroids. Review of Systems Review of Systems: All systems reviewed & are unremarkable except as noted in HPI and below PMFSH Past Medical History Medical History (Updated 09/25/20 @ 17:20 by Amarilys Cruz MD) Abdominal aortic aneurysm Status post endovascular repair. Anxiety Benign prostatic hyperplasia Bladder cancer Status post TURBT and chemotherapy. Chronic obstructive pulmonary disease Gout Hyperlipidemia Hypertension Kidney stones Lung cancer Status post partial lobectomy. Osteoarthritis Spinal stenosis Surgical History Surgical History (Updated 09/22/20 @ 21:40 by Deisy Leon PA-C) History of bladder surgery Resection of bladder tumor. History of carpal tunnel release of both wrists History of cystoscopy History of decompression of ulnar nerve History of endovascular stent graft for abdominal aortic aneurysm History of lithotripsy Status post partial lobectomy of lung Family History Family History (Updated 09/22/20 @ 21:41 by Deisy Leon PA-C) Other Heart disease Hypertension Social History Social History (Updated 09/22/20 @ 21:42 by Deisy Leon PA-C) Social History: The patient lives in [place]. He smoked 1 to 2 packs of cigarettes a day for about 50+ years. No significant alcohol use. Uses medical marijuana. His daughter Nicole Bello is his healthcare power of civil attorney and he wishes to be a full code. Smoking status: Former smoker Tobacco type: cigarettes Smoking end date: 03/07/20 Alcohol intake: never Substance use: former Substance use type: marijuana Other substance usage details: medical marijuana Gender identity (if verbalized by the patient): Male Sexual Orientation (if Verbalized by the Patient): Straight or Heterosexual Spiritual care concerns: No Meds Home Medications and Allergies Home Medications Medication Instructions Recorded Confirmed Type albuterol sulfate 2 puff INHALATION Q6H PRN 09/23/20 09/23/20 History amlodipine 2.5 mg PO DAILY 09/23/20 09/23/20 History fluticasone propionate [Flovent 1 inh INHALATION DAILY 09/23/20 09/23/20 History Diskus] tamsulosin 0.4 mg PO DAILY 09/23/20 09/23/20 History Allergies Allergy/AdvReac Type Severity Reaction Status Date / Time adhesive Allergy Unknown RASH Verified 09/22/20 18:03 strawberry Allergy Unknown TONGUE Verified 09/22/20 18:03 SWELLING Vital Signs Vital Signs - 24 hr 09/27/20 00:00 09/27/20 04:00 09/27/20 08:00 Temperature 36.6 C 36.4 C 36.7 C Pulse Rate 86 76 77 Respiratory Rate 18 18 20 Blood Pressure 164/87 H 136/78 149/81 H Pulse Oximetry 92 91 93 09/27/20
[2020-09-27] MEDS: REMDESIVIR 100 MG/NS 250 ML 100 MG/250 ML BAG 250 MG IVPB (21:44)
[2020-09-28] VITALS (12 sets, daily range): BP systolic 121–139; BP diastolic 64–92; PULSE 67–120; RESP 18–20; TEMP 36.2–36.9; O2SAT 90–97
[2020-09-28] MEDS: CENTRAL LINE FLUSH 10 ML IV PUSH ×3 (05:03→22:00)
[2020-09-28 06:51] LABS: Alanine Aminotransferase 37 U/L (4-50); Estimated CRCL calculation 71 ml/min; Estimated Glomerular Filt Rate > 60
[2020-09-28] MEDS: amLODIPine BESYLATE 2.5 MG TABLET PO (08:48)
[2020-09-28] MEDS: DEXAMETHASONE 4 MG TABLET PO (08:48)
[2020-09-28] MEDS: ENOXAPARIN 40 MG/0.4 ML SYRINGE SUB-Q ×2 (08:48→20:52)
[2020-09-28] MEDS: TAMSULOSIN HCL 0.4 MG CAPSULE PO (08:48)
[2020-09-28] MEDS: SENNOSIDES 8.6 MG TABLET PO (08:48)
[2020-09-28] MEDS: ALBUTEROL SULFATE (*SP) AEROSOL 1 PUFF 6 PUFF INHALATION ×4 (08:49→21:07)
[2020-09-28] MEDS: FLUTICASONE PROP 110 MCG INHALER 12 GM (*SP) 2 PUFF INHALATION (08:49)
--- NOTE | 2020-09-28 09:54 | PM.PNPUL ---
Progress Note: A&P Assessment and Plan (1) Pneumonia due to COVID-19 virus: Code(s): U07.1 - COVID-19; J12.82 - Pneumonia due to coronavirus disease 2019 Status: Acute Assessment and Plan: - agree with continuing both Remdesivir and Dexamethasone for total of 10 days. Follow LFTs and Cr. - will add Pulmicort 1.0 mg Nebulized Q12h as there is some preliminary evidence that inhaled corticosteroids early on may help minimize severity of disease. - Prone ventilation as tolerated given his shackles. - Avoid fluid overload. (2) Acute respiratory failure with hypoxia: Code(s): J96.01 - Acute respiratory failure with hypoxia Status: Acute Assessment and Plan: Continue to wean FIO2 to maintain saturations 90-94%. Discussed wtih Dr. Blank, will sign off, please call with any questions. Subjective Date/time seen: 09/28/20 09:54 Interval history: 70-year-old male smoker with history of bladder cancer status post chemotherapy, lung cancer status post resection, COPD, and hypertension who presented [facility] the emergency department [facility] for evaluation of cough and shortness of breath. Covid positive. 09/27: He continues on oxygen at 8L. BAINS with any exertion. Tired. Achy. Constipated. Fair appetite. 09/28 On 8 L NC with saturations 95-97%, slow improvement. Review of Systems Review of Systems: All systems reviewed & are unremarkable except as noted in HPI and below Eyes: Eyes: Reports no additional eye complaints ENT: Reports system reviewed and no additional complaints, except as documented and Reports sinus pressure Cardiovascular: Cardiovascular: Reports no additional cardiovascular complaints Respiratory: Respiratory: Reports dyspnea Gastrointestinal: Gastrointestinal: Reports no additional gastrointestinal complaints Musculoskeletal: Musculoskeletal: Reports no additional musculoskeletal complaints Integumentary/Breasts: Skin/Breast: Reports system reviewed and no additional complaints, except as docu Neurologic: Reports system reviewed and no additional complaints, except as documented and Reports behavioral changes Psychiatric: Psychiatric: Reports no additional psychiatric complaints, Reports abnormal sleep pattern and Reports anxiety Endocrine: Endocrine: Reports no additional endocrine complaints Exam Const: General: cooperative, healthy appearing and other (Handcuffed at wrist and ankle) Orientation/consciousness: oriented to person, oriented to place and oriented to time HENMT: Head: normal to inspection Ears: hearing grossly normal bilaterally Mouth: Yes Normal oral and palatal mucosa present Throat: tonsils absent Eyes: General: appearance normal, both eyes and all related structures Neck: Neck: normal visual inspection Chest: Chest palpation & inspection: normal inspection of the chest Resp: Effort & Inspection: normal respiratory effort, able to speak in complete sentences, no audible wheezes and no cough Auscultation: clear to auscultation bilaterally, no crackles, no rales, no rhonchi and no wheezes Cardio: Jugular venous distension: no JVD GI: Inspection: normal to inspection Skin: General skin exam: normal color Neuro: General: oriented to person, oriented to place and oriented to time Extrem: General: normal to inspection Psych: Appearance: grossly normal Objective Data Vital Signs Vital Signs: Vital Signs - 24 hr 09/27/20 12:00 09/27/20 16:00 09/27/20 17:15 Temperature 36.6 C 36.5 C Pulse Rate 94 92 Respiratory Rate 20 20 Blood Pressure 121/73 124/70 Pulse Oximetry 95 97 94 09/27/20 20:00 09/27/20 23:57 09/28/20 00:00 Temperature 37.1 C 36.8 C Pulse Rate 89 83 76 Respiratory Rate 18 18 Blood Pressure 150/76 H 133/57 L Pulse Oximetry 95 96 09/28/20 04:00 09/28/20 08:00 09/28/20 09:40 Temperature 36.5 C 36.9 C Pulse Rate 73 73 Respiratory Rate 20 20 Blood Pressure 130/64 139/68 Pulse Oxi
[2020-09-28] MEDS: HYDROcodone/acetaminophen (*CRX) 7.5-325 MG TABLET 1 TAB PO (15:35)
--- NOTE | 2020-09-28 16:11 | PM.IMPN ---
Progress Note: A&P Assessment and Plan (1) Acute respiratory failure with hypoxia: Code(s): J96.01 - Acute respiratory failure with hypoxia Status: Acute Assessment and Plan: Currently requiring 8L Wean oxygen as possible (2) Pneumonia due to COVID-19 virus: Code(s): U07.1 - COVID-19; J12.82 - Pneumonia due to coronavirus disease 2019 Status: Acute Assessment and Plan: Continue dexamethasone and remdesivir through 10/01/2020 Enoxaparin 40mg q 12h Seen by pulmonology continue present care Difficulty with prone positions due to shackles (3) Hyponatremia: Code(s): E87.1 - Hypo-osmolality and hyponatremia Status: Acute Assessment and Plan: Sodium is 131 (4) Hypokalemia: Code(s): E87.6 - Hypokalemia Status: Resolved Assessment and Plan: Resolved (5) Hypertension: Code(s): I10 - Essential (primary) hypertension Status: Chronic Assessment and Plan: Continue current regimen (6) Chronic obstructive pulmonary disease: Code(s): J44.9 - Chronic obstructive pulmonary disease, unspecified Status: Inactive Assessment and Plan: Continue current regimen (7) Anxiety: Code(s): F41.9 - Anxiety disorder, unspecified Status: Chronic Assessment and Plan: PRN alprazolam to continue Subjective Date/time seen: 09/28/20 16:11 Interval history: 70-year-old male smoker with history of bladder cancer status post chemotherapy, lung cancer status post resection, COPD, and hypertension who presented to the emergency department earlier today via the electrical prospecting engineer's department for evaluation of cough and shortness of breath. Covid positive. pt is on oxygen at 8 liters of oxygen, on steroids on 6th day of remdesivir. Pt is on nebulisers and inhaler. Feels better today slightly, can wean down oxygen Review of Systems Review of Systems: All systems reviewed & are unremarkable except as noted in HPI and below Exam Narrative: Exam Narrative: Elderly man able to complete sentences Pt is on 10 liters of oxygen Pt lying on his side ABDOMEN: BS+, soft, nontender, no mass, no bruits EXTREMITIES: No cyanosis, edema, or clubbing NEUROLOGIC: CN intact and symmetric to inspection. MUSCULOSKELETAL: Tone and strength symmetric. PSYCH: Alert. Oriented to person, place, and time. Objective Data Vital Signs Vital Signs: Vital Signs - 24 hr 09/27/20 17:15 09/27/20 20:00 09/27/20 23:57 Temperature 37.1 C 36.8 C Pulse Rate 89 83 Respiratory Rate 18 18 Blood Pressure 150/76 H 133/57 L Pulse Oximetry 94 95 96 09/28/20 00:00 09/28/20 01:15 09/28/20 04:00 Temperature 36.5 C Pulse Rate 76 120 H 73 Respiratory Rate 20 Blood Pressure 130/64 Pulse Oximetry 93 97 09/28/20 08:00 09/28/20 08:30 09/28/20 09:40 Temperature 36.9 C Pulse Rate 77 Respiratory Rate 20 Blood Pressure 139/68 Pulse Oximetry 94 94 90 09/28/20 12:00 Temperature 36.2 C L Pulse Rate 102 H Respiratory Rate 20 Blood Pressure 130/70 Pulse Oximetry 93 Intake/Output Intake/Output: Intake & Output 09/25/20 09/26/20 09/27/20 09/28/20 23:59 23:59 23:59 23:59 Intake Total 1810 2590 1940 860 Output Total 775 1775 1250 1200 Balance 1035 815 690 -340 Meds/Results Medications: Active Medications Generic Name Dose Route Start Last Admin Trade Name Freq PRN Reason Stop Dose Admin Hydrocodone Bitart/Acetaminophen 1 tab 09/22/20 23:16 09/28/20 15:35 Hydrocodone/Acetaminophen (*Crx) 7.5-325 Mg Tablet PO 1 tab Q6H PRN Administration Pain Rated 7-10 Albuterol 6 puff 09/23/20 00:05 09/28/20 12:39 Albuterol Sulfate (*Sp) Aerosol 1 Puff INHALATION 6 puff QIDRT RIC Administration Albuterol 2 puff 09/23/20 17:45 Albuterol Sulfate (*Sp) Aerosol 1 Puff INHALATION Q6H PRN Shortness Of Breath Alprazolam 0.5 mg 09/26/20 15:40 09/27/20 21:45 Alprazolam (*Crx) 0.5 Mg Tablet PO
[2020-09-28] MEDS: REMDESIVIR 100 MG/NS 250 ML 100 MG/250 ML BAG 250 MG IVPB (20:52)
[2020-09-28] MEDS: BUDESONIDE RESPULE NEB 0.5 MG/2 ML AMP 1 MG INHALATION (21:05)
[2020-09-28] MEDS: ALPRAZolam (*CRX) 0.5 MG TABLET PO (22:01)
[2020-09-29] VITALS (11 sets, daily range): BP systolic 124–140; BP diastolic 69–85; PULSE 60–96; RESP 18–20; TEMP 36.1–36.5; O2SAT 91–98
[2020-09-29] MEDS: CENTRAL LINE FLUSH 10 ML IV PUSH ×3 (05:56→20:56)
[2020-09-29 06:15] LABS: Alanine Aminotransferase 28 U/L (4-50); Estimated CRCL calculation 71 ml/min; Estimated Glomerular Filt Rate > 60
[2020-09-29] MEDS: amLODIPine BESYLATE 2.5 MG TABLET PO (09:22)
[2020-09-29] MEDS: DEXAMETHASONE 4 MG TABLET PO (09:22)
[2020-09-29] MEDS: ENOXAPARIN 40 MG/0.4 ML SYRINGE SUB-Q ×2 (09:23→20:55)
[2020-09-29] MEDS: SENNOSIDES 8.6 MG TABLET PO (09:24)
[2020-09-29] MEDS: TAMSULOSIN HCL 0.4 MG CAPSULE PO (09:24)
[2020-09-29] MEDS: ALBUTEROL SULFATE (*SP) AEROSOL 1 PUFF 6 PUFF INHALATION ×4 (09:49→20:44)
[2020-09-29] MEDS: BUDESONIDE RESPULE NEB 0.5 MG/2 ML AMP 1 MG INHALATION ×2 (09:50→20:44)
[2020-09-29] MEDS: ALPRAZolam (*CRX) 0.5 MG TABLET PO ×2 (11:08→20:49)
--- NOTE | 2020-09-29 14:15 | PCNWS ---
Weekly nutritional screen. Patient is tolerating current diet with adequate intake. No weight loss reported. No nutritional needs at this time.
--- NOTE | 2020-09-29 14:19 | PCNSR ---
On 09/29/20, the student, Vandana Bond, provided care and completed [facility] documentation on this patient. I have reviewed the student's documentation and agree with the findings.
--- NOTE | 2020-09-29 17:20 | PM.IMPN ---
Progress Note: A&P Assessment and Plan (1) Acute respiratory failure with hypoxia: Code(s): J96.01 - Acute respiratory failure with hypoxia Status: Acute Assessment and Plan: Weaning off of oxygen Pulmonology on board (2) Pneumonia due to COVID-19 virus: Code(s): U07.1 - COVID-19; J12.82 - Pneumonia due to coronavirus disease 2019 Status: Acute Assessment and Plan: Remdesivir+ Dexamethasone Improved (3) Hypertension: Code(s): I10 - Essential (primary) hypertension Status: Chronic Assessment and Plan: Continue to monitor On Amlodipine (4) Hyponatremia: Code(s): E87.1 - Hypo-osmolality and hyponatremia Status: Acute Assessment and Plan: Trending up Will continue with daily BMP. (5) Hypokalemia: Code(s): E87.6 - Hypokalemia Status: Resolved Assessment and Plan: Replace as needed. Subjective Date/time seen: 09/29/20 17:20 Patient states that he feels well. No new issues overnight. Review of Systems Review of Systems: Narrative: No discomfort currently. Constitutional: Comments: no fevers, no rigors, no chills. Eyes: Comments: no vision changes. ENT: Comments: no throat pain, no nasal congestion. Cardiovascular: Comments: no chest pain. Respiratory: Comments: mild sob. Gastrointestinal: Comments: no n/v/abdominal pain. Musculoskeletal: Comments: no joint pain currently. Integumentary/Breasts: Comments: no rashes Neurologic: Comments: no sensory motor deficit. Exam Narrative: Exam Narrative: Lying in bed. Const: General: no acute distress, alert, awake, Physically active, acute distress and tired appearing Nutritional Appearance: average body habitus HENMT: Head: normocephalic General nose exam: Normal external nose present Face and sinus: normal facial exam Eyes: General: appearance normal, both eyes and all related structures Pupils: Equal, round and reactive pupils present EOM: EOMs intact bilaterally Neck: Neck: no lymphadenopathy, supple and no JVD Resp: Auscultation: diminished lung sounds Cardio: Jugular venous distension: no JVD Rate: regular rate Rhythm: regular rhythm GI: GI Palp: Yes Soft to palpation and Yes No hepatosplenomegaly present Skin: Wounds: no wounds Neuro: General: patient oriented x3 and CN's II-XI intact bilaterally Cranial nerves: Yes CN's II-XII intact bilaterally and Yes Equal, round and reactive pupils present Cognition (Neuro): normal cognition Motor exam (neuro): 5/5 motor strength present throughout Extrem: General: no pedal edema Objective Data Vital Signs Vital Signs: Vital Signs - 24 hr 09/28/20 20:00 09/28/20 21:15 09/28/20 21:16 Temperature 98.0 F Pulse Rate 101 H 94 Respiratory Rate 18 20 Blood Pressure 130/85 Pulse Oximetry 96 92 09/28/20 21:24 09/29/20 00:00 09/29/20 03:50 Temperature 97.0 F L 97.2 F L Pulse Rate 101 H 71 62 Respiratory Rate 20 18 18 Blood Pressure 138/85 124/69 Pulse Oximetry 95 98 09/29/20 04:00 09/29/20 08:00 09/29/20 09:51 Temperature 97.6 F Pulse Rate 60 96 92 Respiratory Rate 20 20 Blood Pressure 129/74 Pulse Oximetry 91 91 09/29/20 10:14 09/29/20 12:00 09/29/20 16:00 Temperature 97.3 F L 97.7 F Pulse Rate 96 77 87 Respiratory Rate 20 20 20 Blood Pressure 131/69 133/69 Pulse Oximetry 95 96 09/29/20 16:27 Temperature Pulse Rate Respiratory Rate Blood Pressure Pulse Oximetry 93 Intake/Output Intake/Output: Intake & Output 09/26/20 09/27/20 09/28/20 09/29/20 23:59 23:59 23:59 23:59 Intake Total 2590 1940 3050 1370 Output Total 1775 1250 2400 900 Balance 815 690 650 470 Meds/Results Medications: Active Medications Generic Name Dose Route Start Last Admin Trade Name Freq PRN Reason Stop Dose Admin Hydrocodone Bitart/Acetaminophen 1 tab 09/22/20 23:16 09/28/20 15:35 Hydrocodone/Acetaminophen (*Crx) 7.5-325 Mg Tablet PO 1 tab Q6
[2020-09-29] MEDS: REMDESIVIR 100 MG/NS 250 ML 100 MG/250 ML BAG 250 MG IVPB (20:59)
[2020-09-30] VITALS (14 sets, daily range): BP systolic 119–145; BP diastolic 55–78; PULSE 66–83; RESP 18–20; TEMP 36.2–36.7; O2SAT 82–97
[2020-09-30] MEDS: CENTRAL LINE FLUSH 10 ML IV PUSH ×3 (05:16→20:54)
[2020-09-30 06:43] LABS: Hematocrit 39.7 % (42.0-52.0); Hemoglobin 13.2 g/dL (14.0-18.0); Mean Corpuscular HGB Conc 33.2 g/dl (32-36); Mean Corpuscular Hemoglobin 28.4 pg (26-34); Mean Corpuscular Volume 85.4 fl (80-100); Mean Platelet Volume 9.7 fl (7.4-10.4); Platelet Count Result 257 k/mm3 (150-375); Red Blood Count 4.65 M/mm3 (4.6-6.20); Red Cell Distribution Width 14.9 % (11.5-14.5); White Blood Count 14.5 K/mm3 (4.5-10.0)
[2020-09-30 06:55] LABS: Alanine Aminotransferase 24 U/L (4-50); Anion Gap 4 mmol/L (8-16); Blood Urea Nitrogen 21 mg/dL (9-20); Calcium 7.9 mg/dL (8.4-10.2); Carbon Dioxide 32 mmol/L (22-30); Chloride 99 mmol/L (98-107); Estimated CRCL calculation 80 ml/min; Estimated Glomerular Filt Rate > 60; Glucose 102 mg/dL (75-110); Potassium 3.4 mmol/L (3.4-5.0); Sodium 135 mmol/L (137-145)
[2020-09-30 07:23] LABS: Band Neutrophils Percent 5 % (0-6); Lymphocytes Absolute Manual 1.74 K/mm3 (1.1-4.5); Monocytes Absolute Manual 0.87 K/mm3 (0.1-0.90); Monocytes Percent Manual 6 % (3-9); Neutrophils Absolute Manual 11.89 K/mm3 (1.3-6.7); Neutrophils Percent Manual 77 % (46-73); Ovalocytes 1+ (NORMAL); Platelet Estimate Adequate (Adequate); Total Cells Counted 100
[2020-09-30 07:24] LABS: Anisocytosis 1+ (NORMAL)
[2020-09-30] MEDS: BUDESONIDE RESPULE NEB 0.5 MG/2 ML AMP 1 MG INHALATION ×2 (08:32→21:40)
[2020-09-30] MEDS: ALBUTEROL SULFATE (*SP) AEROSOL 1 PUFF 6 PUFF INHALATION ×4 (08:33→20:52)
[2020-09-30] MEDS: TAMSULOSIN HCL 0.4 MG CAPSULE PO (09:02)
[2020-09-30] MEDS: amLODIPine BESYLATE 2.5 MG TABLET PO (09:02)
[2020-09-30] MEDS: ENOXAPARIN 40 MG/0.4 ML SYRINGE SUB-Q ×2 (09:02→20:53)
[2020-09-30] MEDS: SENNOSIDES 8.6 MG TABLET PO (09:02)
[2020-09-30] MEDS: DEXAMETHASONE 4 MG TABLET PO (09:02)
--- NOTE | 2020-09-30 17:21 | PM.IMPN ---
Progress Note: A&P Assessment and Plan (1) Pneumonia due to COVID-19 virus: Code(s): U07.1 - COVID-19; J12.82 - Pneumonia due to coronavirus disease 2019 Status: Acute Assessment and Plan: Still requiring 7 L of oxygen Continue to monitor Continue Remdesivir and Dexamethasone (2) Acute respiratory failure with hypoxia: Code(s): J96.01 - Acute respiratory failure with hypoxia Status: Acute Assessment and Plan: On nc 7 L Wean off of as needed (3) Hyponatremia: Code(s): E87.1 - Hypo-osmolality and hyponatremia Status: Acute Assessment and Plan: Resolved (4) Hypokalemia: Code(s): E87.6 - Hypokalemia Status: Resolved Assessment and Plan: Resolved (5) Hypertension: Code(s): I10 - Essential (primary) hypertension Status: Chronic Assessment and Plan: Stable Continue home meds Continue to monitor Subjective Date/time seen: 09/30/20 17:21 Patient states that he feels much better. Review of Systems Review of Systems: Narrative: No new issues over night ROS unobtainable: Yes unobtainable due to medical condition Constitutional: Comments: no fevers, no chills. Cardiovascular: Comments: no chest pain, no pnd. Respiratory: Comments: sob, cough. Gastrointestinal: Comments: no n/v/abdominal pain. Musculoskeletal: Comments: no joint enlargement Integumentary/Breasts: Comments: no rashes. Neurologic: Comments: no sensory motor deficit Exam Narrative: Exam Narrative: Lying in bed Const: General: comfortable, no acute distress, alert, awake and Physically active Nutritional Appearance: average body habitus Orientation/consciousness: patient oriented x3 HENMT: Head: normocephalic Ears: hearing grossly normal bilaterally General nose exam: Normal external nose present Eyes: General: appearance normal, both eyes and all related structures Pupils: Equal, round and reactive pupils present EOM: EOMs intact bilaterally Neck: Neck: no lymphadenopathy, supple and no JVD Resp: Auscultation: diminished lung sounds Cardio: Rate: regular rate Rhythm: regular rhythm GI: GI Palp: Yes Soft to palpation and Yes No hepatosplenomegaly present Skin: Wounds: no wounds Neuro: General: patient oriented x3 and CN's II-XI intact bilaterally Cranial nerves: Yes CN's II-XII intact bilaterally and Yes Equal, round and reactive pupils present Cognition (Neuro): normal cognition Motor exam (neuro): 5/5 motor strength present throughout Extrem: General: no pedal edema Objective Data Vital Signs Vital Signs: Vital Signs - 24 hr 09/29/20 20:00 09/29/20 20:44 09/30/20 00:00 Temperature 97.2 F L 97.2 F L Pulse Rate 81 88 78 Respiratory Rate 18 20 20 Blood Pressure 140/76 119/55 L Pulse Oximetry 96 95 94 09/30/20 04:00 09/30/20 08:00 09/30/20 08:30 Temperature 97.5 F L 97.6 F Pulse Rate 75 66 78 Respiratory Rate 20 18 20 Blood Pressure 134/70 145/75 H Pulse Oximetry 93 96 97 09/30/20 08:40 09/30/20 09:00 09/30/20 10:15 Temperature Pulse Rate 76 73 Respiratory Rate 20 Blood Pressure Pulse Oximetry 92 09/30/20 12:00 09/30/20 13:00 09/30/20 15:46 Temperature 97.8 F Pulse Rate 81 Respiratory Rate 18 Blood Pressure 125/66 Pulse Oximetry 97 97 82 L 09/30/20 16:00 Temperature 98.1 F Pulse Rate 80 Respiratory Rate 18 Blood Pressure 128/75 Pulse Oximetry 94 Intake/Output Intake/Output: Intake & Output 09/27/20 09/28/20 09/29/20 09/30/20 23:59 23:59 23:59 23:59 Intake Total 1940 3050 3260 880 Output Total 1250 2400 1200 1600 Balance 476 072 5723 -720 Meds/Results Medications: Active Medications Generic Name Dose Route Start Last Admin Trade Name Freq PRN Reason Stop Dose Admin Hydrocodone Bitart/Acetaminophen 1 tab 09/22/20 23:16 09/28/20 15:35 Hydrocodone/Acetaminophen (*Crx) 7.5-325 Mg Tablet PO 1 tab Q6H PRN Administration Pain Rated 7-10
[2020-09-30] MEDS: HYDROcodone/acetaminophen (*CRX) 7.5-325 MG TABLET 1 TAB PO (18:00)
[2020-09-30 18:18] LABS: Add Urine Microscopic? YES; Appearance Urine Clear (Clear); Bilirubin Urine Negative (Negative); Blood Urine Negative (Negative); Color Urine Yellow (Yellow); Glucose Urine UA 1+ mg/dL (Negative); Ketones Urine Negative (Negative); Leukocyte Esterase Ur Negative LEU/UL (Negative); Nitrate Urine Negative (Negative); Protein Urine 1+ mg/dL (Negative); RBC Urine 0-2 /hpf (0-2); Specific Grav Ur 1.015 (1.001-1.035); WBC Urine 0-3 /hpf
[2020-09-30] MEDS: ALPRAZolam (*CRX) 0.5 MG TABLET PO (20:53)
[2020-09-30] MEDS: REMDESIVIR 100 MG/NS 250 ML 100 MG/250 ML BAG 250 MG IVPB (20:53)
[2020-10-01] VITALS (12 sets, daily range): BP systolic 137–157; BP diastolic 62–82; PULSE 72–91; RESP 18–20; TEMP 36.4–36.7; O2SAT 82–93
[2020-10-01] MEDS: CENTRAL LINE FLUSH 10 ML IV PUSH ×3 (04:51→20:46)
[2020-10-01] MEDS: ALPRAZolam (*CRX) 0.5 MG TABLET PO ×2 (04:51→20:45)
[2020-10-01 06:19] LABS: Hematocrit 40.7 % (42.0-52.0); Hemoglobin 13.7 g/dL (14.0-18.0); Mean Corpuscular HGB Conc 33.7 g/dl (32-36); Mean Corpuscular Hemoglobin 28.5 pg (26-34); Mean Corpuscular Volume 84.8 fl (80-100); Mean Platelet Volume 9.7 fl (7.4-10.4); Platelet Count Result 249 k/mm3 (150-375); Red Cell Distribution Width 15.3 % (11.5-14.5); White Blood Count 14.3 K/mm3 (4.5-10.0)
[2020-10-01 06:27] LABS: Alanine Aminotransferase 22 U/L (4-50); Anion Gap 3 mmol/L (8-16); Blood Urea Nitrogen 20 mg/dL (9-20); Calcium 7.8 mg/dL (8.4-10.2); Carbon Dioxide 30 mmol/L (22-30); Chloride 98 mmol/L (98-107); Estimated CRCL calculation 80 ml/min; Estimated Glomerular Filt Rate > 60; Glucose 108 mg/dL (75-110); Potassium 3.4 mmol/L (3.4-5.0); Sodium 131 mmol/L (137-145)
[2020-10-01 06:46] LABS: Lymphocytes Absolute Manual 1.85 K/mm3 (1.1-4.5); Monocytes Absolute Manual 1.28 K/mm3 (0.1-0.90); Monocytes Percent Manual 9 % (3-9); Neutrophils Percent Manual 78 % (46-73); Nucleated Red Blood Cells 1 %; Total Cells Counted 100
[2020-10-01 06:47] LABS: Atypical Lymphocytes Present; Macrocytosis 1+ (NORMAL); Platelet Estimate Adequate (Adequate); Tear Drop Cells 1+ (NORMAL)
[2020-10-01] MEDS: ALBUTEROL SULFATE (*SP) AEROSOL 1 PUFF 6 PUFF INHALATION ×4 (08:05→20:46)
[2020-10-01] MEDS: BUDESONIDE RESPULE NEB 0.5 MG/2 ML AMP 1 MG INHALATION ×2 (08:06→21:27)
[2020-10-01] MEDS: HYDROcodone/acetaminophen (*CRX) 7.5-325 MG TABLET 1 TAB PO ×2 (10:45→21:01)
[2020-10-01] MEDS: SENNOSIDES 8.6 MG TABLET PO (10:45)
[2020-10-01] MEDS: TAMSULOSIN HCL 0.4 MG CAPSULE PO (10:45)
[2020-10-01] MEDS: DEXAMETHASONE 4 MG TABLET PO (10:46)
[2020-10-01] MEDS: ENOXAPARIN 40 MG/0.4 ML SYRINGE SUB-Q ×2 (10:46→20:45)
[2020-10-01] MEDS: amLODIPine BESYLATE 2.5 MG TABLET PO (10:46)
--- NOTE | 2020-10-01 15:59 | PM.IMPN ---
Progress Note: A&P Assessment and Plan (1) Pneumonia due to COVID-19 virus: Code(s): U07.1 - COVID-19; J12.82 - Pneumonia due to coronavirus disease 2019 Status: Acute Assessment and Plan: Improved Continue Remdesivir and Dexamethasone (2) Acute respiratory failure with hypoxia: Code(s): J96.01 - Acute respiratory failure with hypoxia Status: Acute Assessment and Plan: On NC Try to wean off of oxygen as needed (3) Hyponatremia: Code(s): E87.1 - Hypo-osmolality and hyponatremia Status: Acute Assessment and Plan: Daily BMP I/O balance is positive Fluid restriction (4) Hypokalemia: Code(s): E87.6 - Hypokalemia Status: Resolved Assessment and Plan: Replace as needed (5) Hypertension: Code(s): I10 - Essential (primary) hypertension Status: Chronic Assessment and Plan: Continue to monitor Continue home meds (6) Anxiety: Code(s): F41.9 - Anxiety disorder, unspecified Status: Chronic Assessment and Plan: Continue home meds Subjective Date/time seen: 10/01/20 15:59 Patient states that he feels much better. Review of Systems Review of Systems: Narrative: Patient presented to ED due to sob. Constitutional: Comments: no chills, no fevers, no rigors. ENT: Comments: nasal congestion. Cardiovascular: Comments: no chest pain. Respiratory: Comments: sob. Gastrointestinal: Comments: no n/v/abdominal pain. Musculoskeletal: Comments: no joint pain. Integumentary/Breasts: Comments: no rashes Neurologic: Comments: no sensory motor deficit Exam Narrative: Exam Narrative: Lying in bed Const: General: comfortable, no acute distress, alert, awake and Physically active Nutritional Appearance: average body habitus Orientation/consciousness: patient oriented x3 HENMT: Head: normocephalic Ears: hearing grossly normal bilaterally General nose exam: Normal external nose present Face and sinus: normal facial exam Eyes: General: appearance normal, both eyes and all related structures Pupils: Equal, round and reactive pupils present EOM: EOMs intact bilaterally Neck: Neck: no lymphadenopathy, supple and no JVD Resp: Auscultation: clear to auscultation bilaterally and diminished lung sounds Cardio: Jugular venous distension: no JVD Rate: regular rate Rhythm: regular rhythm GI: GI Palp: Yes Soft to palpation and Yes No hepatosplenomegaly present Skin: Rashes: no rashes Wounds: no wounds Neuro: General: patient oriented x3 and CN's II-XI intact bilaterally Cranial nerves: Yes CN's II-XII intact bilaterally, Yes Equal, round and reactive pupils present and Yes Bilaterally intact EOM present Cognition (Neuro): normal cognition Speech: normal speech Motor exam (neuro): 5/5 motor strength present throughout Extrem: General: no pedal edema Objective Data Vital Signs Vital Signs: Vital Signs - 24 hr 09/30/20 16:00 09/30/20 18:05 09/30/20 20:00 Temperature 98.1 F 97.6 F Pulse Rate 80 83 Respiratory Rate 18 20 Blood Pressure 128/75 130/78 Pulse Oximetry 94 92 91 09/30/20 20:40 10/01/20 00:00 10/01/20 04:00 Temperature 97.9 F 98.1 F Pulse Rate 72 78 Respiratory Rate 20 20 Blood Pressure 139/71 157/82 H Pulse Oximetry 91 90 91 10/01/20 08:00 10/01/20 08:06 10/01/20 09:00 Temperature Pulse Rate 81 81 Respiratory Rate 18 18 Blood Pressure Pulse Oximetry 92 92 82 L 10/01/20 10:40 10/01/20 12:30 10/01/20 12:58 Temperature 97.8 F Pulse Rate 89 79 Respiratory Rate 18 18 Blood Pressure 137/62 Pulse Oximetry 90 93 Intake/Output Intake/Output: Intake & Output 09/28/20 09/29/20 09/30/20 10/01/20 23:59 23:59 23:59 23:59 Intake Total 3050 3510 2470 2360 Output Total 2400 1200 3025 1650 Balance 650 1331 -862 060 Meds/Results Medications: Active Medications Generic Name Dose Route Start Last Admin Trade Name Freq PRN Reason Stop Dose
[2020-10-01] MEDS: REMDESIVIR 100 MG/NS 250 ML 100 MG/250 ML BAG 250 MG IVPB (20:45)
[2020-10-02] VITALS (9 sets, daily range): BP systolic 155–163; BP diastolic 76–91; PULSE 70–90; RESP 16–18; TEMP 36.4–37.1; O2SAT 92–97
[2020-10-02] MEDS: ALPRAZolam (*CRX) 0.5 MG TABLET PO ×2 (04:36→21:47)
[2020-10-02] MEDS: CENTRAL LINE FLUSH 10 ML IV PUSH ×2 (05:53→22:44)
[2020-10-02] MEDS: BUDESONIDE RESPULE NEB 0.5 MG/2 ML AMP 1 MG INHALATION (08:59)
[2020-10-02] MEDS: ALBUTEROL SULFATE (*SP) AEROSOL 1 PUFF 6 PUFF INHALATION ×3 (08:59→15:47)
[2020-10-02] MEDS: SENNOSIDES 8.6 MG TABLET PO (09:43)
[2020-10-02] MEDS: amLODIPine BESYLATE 2.5 MG TABLET PO (09:43)
[2020-10-02] MEDS: DEXAMETHASONE 4 MG TABLET PO (09:43)
[2020-10-02] MEDS: TAMSULOSIN HCL 0.4 MG CAPSULE PO (09:44)
[2020-10-02] MEDS: ENOXAPARIN 40 MG/0.4 ML SYRINGE SUB-Q ×2 (09:45→21:47)
--- NOTE | 2020-10-02 14:19 | PM.DS ---
DS: Admitting Diagnosis Admitting Diagnosis Admitting Diagnosis: (1) Acute respiratory failure with hypoxia: (2) Pneumonia due to COVID-19 virus: (3) Hyponatremia: (4) Hypokalemia: (5) Hypertension: (6) Chronic obstructive pulmonary disease: (7) Anxiety: DS: Discharge Diagnosis Discharge Diagnosis (1) Acute respiratory failure with hypoxia: Code(s): J96.01 - Acute respiratory failure with hypoxia Status: Acute Assessment and Plan: Resolved (2) Pneumonia due to COVID-19 virus: Code(s): U07.1 - COVID-19; J12.82 - Pneumonia due to coronavirus disease 2019 Status: Acute Assessment and Plan: Resolved (3) Hyponatremia: Code(s): E87.1 - Hypo-osmolality and hyponatremia Status: Acute Assessment and Plan: Improved (4) Hypokalemia: Code(s): E87.6 - Hypokalemia Status: Resolved Assessment and Plan: Replaced (5) Hypertension: Code(s): I10 - Essential (primary) hypertension Status: Chronic Assessment and Plan: Stable (6) Anxiety: Code(s): F41.9 - Anxiety disorder, unspecified Status: Chronic Assessment and Plan: Stable DS: Summary Hospital Course Hospital Course: This is a 70-year-old male smoker with history of bladder cancer status post chemotherapy, lung cancer status post resection, COPD, and hypertension who presented to the emergency department via the [facility] department for evaluation of cough and shortness of breath. He is currently in custodial and there have been numerous cases of COVID at that facility. The patient was diagnosed with COVID sometime last week and unfortunately he continues to feel worse. Symptoms included headache, body aches, fever, chills, nonproductive cough, and shortness of breath. He has also had decreased appetite, a decreased sense of taste, and some diarrhea. He denies chest pain, pleuritic pain, palpitations, and vomiting. Patient was admitted for further treatment and evaluation Pulmonology was consulted He was treated with Remdesivir and Dexamethasone successfully and was discharged back to custodial Time Spent with Patient Time attestation: Total time spent providing and/or coordinating discharge services: Exam Narrative: Exam Narrative: Lying in bed Const: General: comfortable, no acute distress, alert, awake and Physically active Nutritional Appearance: thin Orientation/consciousness: patient oriented x3 HENMT: Head: normocephalic Ears: hearing grossly normal bilaterally General nose exam: Normal external nose present Face and sinus: normal facial exam Eyes: General: appearance normal, both eyes and all related structures Pupils: Equal, round and reactive pupils present EOM: EOMs intact bilaterally Neck: Neck: no lymphadenopathy, supple and no JVD Resp: Effort & Inspection: normal respiratory effort and able to speak in complete sentences Auscultation: clear to auscultation bilaterally Cardio: Jugular venous distension: no JVD Rate: regular rate Rhythm: regular rhythm GI: GI Palp: Yes Soft to palpation and Yes No hepatosplenomegaly present Skin: Rashes: no rashes Neuro: General: patient oriented x3 and CN's II-XI intact bilaterally Cranial nerves: Yes CN's II-XII intact bilaterally and Yes Equal, round and reactive pupils present Cognition (Neuro): normal cognition Gait exam (Neuro): Normal gait present Motor exam (neuro): 5/5 motor strength present throughout Extrem: General: no pedal edema DS: Data Data Completed and Pending Completed studies during hospitalization: EXAMINATION: XR chest 1V portable DATE: 09/30/2020 15:59 INDICATION: Transient alteration of awareness. TECHNIQUE: A single frontal view of the chest was obtained. COMPARISON: Chest single view 09/27/2020, 09/22/2020, chest CT 10/30/15 FINDINGS: There are airspace and interstitial opacities in all lung zones bilaterally. No
[2020-10-02] MEDS: HYDROcodone/acetaminophen (*CRX) 7.5-325 MG TABLET 1 TAB PO ×2 (14:32→21:48)
--- NOTE | 2020-10-02 14:47 | PC.NURSE ---
Received report from PT that pt desatted to low 80s during ambulation to bathroom. Pt was carrying on a long conversation and needed much redirection and coaching to limit conversation to aid in oxygenation when ambulating. Pt continued to talk and needed more cues. When pt returned to rest, pt recovered to 85 on RA but took approximately 5 minutes to return to the 90s. Informed Dr. Parsons who had originally ordered a discharge. Upon review, she noted that he would need to stay another night. Pt remains on RA during rest with an 02 sat of 95+. Informed guards of pt's cancelled discharge at 1445.
--- NOTE | 2020-10-02 18:23 | PC.NURSE ---
patient had decreased oxygen sat to 83% with activity. took a while for oxygen level to return to 90% and higher. Dr. Parsons notified. hold discharge for today.
--- NOTE | 2020-10-02 18:31 | PM.IMPN ---
Progress Note: A&P Assessment and Plan (1) Pneumonia due to COVID-19 virus: Code(s): U07.1 - COVID-19; J12.82 - Pneumonia due to coronavirus disease 2019 Status: Acute Assessment and Plan: Completed Remdesivir course Completed Dexamethasone course Improved. (2) Acute respiratory failure with hypoxia: Code(s): J96.01 - Acute respiratory failure with hypoxia Status: Acute Assessment and Plan: Improved 6 minute walk with RT does not qualify for home oxygen Patient is limited in function as he lives in group home Able to walk short distances (3) Hypertension: Code(s): I10 - Essential (primary) hypertension Status: Chronic Assessment and Plan: Continue home meds Subjective Date/time seen: 10/02/20 18:31 Patient states that he feels much better Review of Systems Review of Systems: Narrative: No new issues overnight. Constitutional: Comments: no fevers, no rigors, no chills. ENT: Comments: no throat pain, no nasal congestion. Cardiovascular: Comments: no pnd, no orthopnea. Respiratory: Comments: no sob. Gastrointestinal: Comments: no n/v/d/abdominal pain. Musculoskeletal: Comments: no joint pain. Integumentary/Breasts: Comments: no rashes. Neurologic: Comments: no sensory motor deficit. Exam Narrative: Exam Narrative: Lying in bed. Const: General: comfortable, no acute distress, alert, awake and Physically active Nutritional Appearance: average body habitus Orientation/consciousness: patient oriented x3 HENMT: Head: normocephalic Ears: hearing grossly normal bilaterally General nose exam: Normal external nose present Face and sinus: normal facial exam Eyes: General: appearance normal, both eyes and all related structures Pupils: Equal, round and reactive pupils present EOM: EOMs intact bilaterally Neck: Neck: no lymphadenopathy, supple and no JVD Resp: Auscultation: clear to auscultation bilaterally and diminished lung sounds Cardio: Jugular venous distension: no JVD Rate: regular rate Rhythm: regular rhythm GI: GI Palp: Yes Soft to palpation and Yes No hepatosplenomegaly present Skin: Wounds: no wounds Neuro: General: patient oriented x3 and CN's II-XI intact bilaterally Cranial nerves: Yes CN's II-XII intact bilaterally and Yes Equal, round and reactive pupils present Cognition (Neuro): normal cognition Motor exam (neuro): 5/5 motor strength present throughout Extrem: General: no pedal edema Objective Data Vital Signs Vital Signs: Vital Signs - 24 hr 10/01/20 20:00 10/01/20 21:31 10/01/20 22:01 Temperature 97.6 F 97.6 F Pulse Rate 91 80 Respiratory Rate 18 18 Blood Pressure 155/75 H Pulse Oximetry 92 10/02/20 06:00 10/02/20 08:59 10/02/20 09:11 Temperature 97.5 F L Pulse Rate 74 78 81 Respiratory Rate 18 18 18 Blood Pressure 163/91 H Pulse Oximetry 92 97 10/02/20 14:00 10/02/20 14:23 10/02/20 15:47 Temperature 98.7 F Pulse Rate 84 83 Respiratory Rate 16 18 Blood Pressure 157/80 H Pulse Oximetry 96 94 96 Intake/Output Intake/Output: Intake & Output 09/29/20 09/30/20 10/01/20 10/02/20 23:59 23:59 23:59 23:59 Intake Total 3510 2470 4100 1140 Output Total 1200 3025 3350 1850 Balance 2310 -250 750 -710 Meds/Results Medications: Active Medications Generic Name Dose Route Start Last Admin Trade Name Freq PRN Reason Stop Dose Admin Hydrocodone Bitart/Acetaminophen 1 tab 09/22/20 23:16 10/02/20 14:32 Hydrocodone/Acetaminophen (*Crx) 7.5-325 Mg Tablet PO 1 tab Q6H PRN Administration Pain Rated 7-10 Albuterol 6 puff 09/23/20 00:05 10/02/20 15:47 Albuterol Sulfate (*Sp) Aerosol 1 Puff INHALATION 6 puff QIDRT RIC Administration Albuterol 2 puff 09/23/20 17:45 Albuterol Sulfate (*Sp) Aerosol 1 Puff INHALATION Q6H PRN Shortness Of Breath Alprazolam 0.5 mg 09/26/20 15:40 10/02/20 04:36 Alprazolam (*Crx) 0.5 Mg Tablet PO 0.5 mg TID
[2020-10-02] MEDS: SALINE 0.65% NAS SOLN 44 ML BTL 1 SPRAY NASAL (21:47)
--- NOTE | 2020-10-02 22:33 | PC.NURSE ---
2100 100MLS OF ICE WATER GIVEN TO PT. REINFORCED FLUID RESTRICTION INSTRUCTIONS. I INSTRUCTED HIM HE GETS 100MLS NOW. 100MLS AT 0000. 100MLS AT 0400 AND 90MLS AT 0400. TOTAL FOR THIS SHIFT 390MLS.
--- NOTE | 2020-10-03 00:23 | PC.NURSE ---
[address] Oilver. Pt is requesting to have his portacath deaccessed. There are no orders for IV medcations or fluids. Pt is planned for discharge tomorrow. Order received to discontinue IV access.
--- NOTE | 2020-10-03 00:29 | PC.NURSE ---
1999 Pt is anxious. Pt is manipulative and tries to control the situation. Dictating his care and needs. Pt instructed on medications, fluid restriction and plan of care this shift. Pt again is manipulative and distracting with multiple anxious complaints.Continiuing to monitor patient.
--- NOTE | 2020-10-03 00:33 | PC.NURSE ---
0005 pt requesting the remainder of his fluid restriction now instead of dividing it up over the shift. 290 mls of ice water provided. Pt has already received 100mls this shift. This additional amount makes for a total of 390mls. Pt is aware that this is all he can have for oral intake this shift. Guard present at this time.
[2020-10-03] MEDS: ALBUTEROL SULFATE (*SP) AEROSOL 1 PUFF 6 PUFF INHALATION ×2 (02:20→08:24)
[2020-10-03 06:00] VITALS: BP 179/99; PULSE 75; RESP 16; TEMP 36.9; O2SAT 93
[2020-10-03 08:18] VITALS: BP 151/84; PULSE 83; RESP 18; O2SAT 90
[2020-10-03] MEDS: TAMSULOSIN HCL 0.4 MG CAPSULE PO (08:19)
[2020-10-03] MEDS: ENOXAPARIN 40 MG/0.4 ML SYRINGE SUB-Q (08:20)
[2020-10-03] MEDS: SENNOSIDES 8.6 MG TABLET PO (08:20)
[2020-10-03] MEDS: amLODIPine BESYLATE 2.5 MG TABLET PO (08:20)
[2020-10-03] MEDS: BUDESONIDE RESPULE NEB 0.5 MG/2 ML AMP 1 MG INHALATION (08:23)
[2020-10-03 08:25] VITALS: PULSE 72; RESP 18; O2SAT 90
[2020-10-03 08:44] VITALS: PULSE 76; RESP 18
== END 2020-10-03 09:26 | disposition home or self-care (01) | DRG 177 ==
LOC: ANHED 14:47 → ANH3MEDSUR 09-23 04:39
PROVIDERS: Family Medicine; Internal Medicine Critical Care Medicine; Physician Assistant; Admitting Provider Internal Medicine; Emergency Provider Emergency Medicine; Visit Provider Internal Medicine
DX: U07.1 COVID-19 (principal); J12.82 Pneumonia due to coronavirus disease 2019; J96.01 Acute respiratory failure with hypoxia; E87.1 Hypo-osmolality and hyponatremia; J44.0 Chronic obstructive pulmonary disease with (acute) lower respiratory infection; E87.6 Hypokalemia; I10 Essential (primary) hypertension; F41.9 Anxiety disorder, unspecified; M10.9 Gout, unspecified; E78.5 Hyperlipidemia, unspecified; M19.90 Unspecified osteoarthritis, unspecified site; Z23 Encounter for immunization; Z79.899 Other long term (current) drug therapy; Z85.118 Personal history of other malignant neoplasm of bronchus and lung; Z85.51 Personal history of malignant neoplasm of bladder; Z87.891 Personal history of nicotine dependence; Z90.2 Acquired absence of lung [part of]; Z92.21 Personal history of antineoplastic chemotherapy
CPT/HCPCS: 36415; 71045; 80048; 80053; 80076; 81001; 82565; 82728; 83615; 83735; 84460; 84484; 85025; 85027; 86140; 90471; 90653; 93005; 94640; 94667; 96374; 97110; 97116; 97161; 97165; 97530; 97535; 99285; A9270; G0008; J1100; J1642; J1650; J8540

== ENCOUNTER 2020-10-26 12:49 | Outpatient (CLI) | payer MEDICARE, SELFPAY ==
--- NOTE | ~2020-10-26 | XR_ITS ---
EXAMINATION: XR thoracic spine 3V EXAM DATE: 10/26/2020 14:32 INDICATION: Hip fracture, hip pain. Spinal stenosis, back pain. TECHNIQUE: Frontal and lateral projections of the thoracic spine as well as lateral swimmers projecti on of the upper thoracic spine for interpretation. There is no prior study for comparison. FINDINGS: There is a left-sided portacatheter. Patient has diffuse idiopathic skeletal hyperostosis along the mid and lower thoracic spine levels. Mild diffuse loss of thoracic vertebral body heights w ithout acute fracture suspected. There is upper thoracic kyphosis. Mild to moderate thoracic disc dis ease. Probable pulmonary arterial hypertension. There is bilateral airspace disease, interstitial pat tern; patient reportedly does have history of COVID pneumonia. IMPRESSION: 1. Thoracic diffuse idiopathic skeletal hyperostosis and mild to moderate disc disease. 2. Interlobular septal thickening. Reviewed, dictated and finalized at location A. [employer] WORKERS
--- NOTE | ~2020-10-26 | XR_ITS ---
EXAMINATION: XR cervical spine 4-5V EXAM DATE: 10/26/2020 14:32 INDICATION: Spinal stenosis. Back pain. TECHNIQUE: Cervical spine frontal, lateral, lateral swimmers, and open-mouth odontoid projections. There is no prior study for comparison. FINDINGS: There is moderate disc disease at C5-6 and 6-7, mild at the upper cervical levels. There i s overall moderate cervical arthropathy. The vertebral bodies are aligned in the AP dimension. The od ontoid process is intact. The lateral masses of C1 line up with C2. Prevertebral soft tissue and pre -dens space are within normal limits. IMPRESSION: Moderate cervical spondylosis. Reviewed, dictated and finalized at location A. NCE ASSOCIATE
--- NOTE | ~2020-10-26 | XR_ITS ---
EXAMINATION: XR hip BI wo pelvis INDICATION: Back and hip pain TECHNIQUE: Two views of each hip are obtained. COMPARISON: None available FINDINGS: Bone alignment is normal. There is no fracture. There are changes of antegrade intramedulla ry michelle and interlocking intratrochanteric screw fixation in the left femur. Calcified atherosclerosis is noted. There is a partially imaged bifurcated aortobiiliac stent. IMPRESSION: 1. No acute osseous abnormality. Reviewed, dictated and finalized at location A. RAL COUNSELOR
--- NOTE | ~2020-10-26 | XR_ITS ---
EXAMINATION: XR lumbar spine 2-3V EXAM DATE: 10/26/2020 14:32 INDICATION: Low back pain. TECHNIQUE: Lumber spine frontal, lateral, lateral L5-S1 projections for interpretation. There is no prior study for comparison. FINDINGS: Aortobiiliac endograft. The vertebral bodies are aligned in the AP dimension. There is mil d diffuse lumbar disc disease, but the heights are maintained. Moderate lower lumbar facet arthropath y. There are no acute fractures identified. No spondylolysis. Left hip gamma nail. Density projecting over right paraspinal region, could be an ingested tablet. IMPRESSION: 1. Moderate lumbar arthropathy. 2. Mild disc disease. Reviewed, dictated and finalized at location A. CARD TENDER
== END 2020-10-26 12:50 | disposition home or self-care (01) ==
PROVIDERS: PCP Emergency Medicine; Visit Provider Emergency Medicine
DX: R10.9 Unspecified abdominal pain (principal); F41.9 Anxiety disorder, unspecified; M12.9 Arthropathy, unspecified; F32.9 Major depressive disorder, single episode, unspecified; M47.892 Other spondylosis, cervical region; M51.36 Other intervertebral disc degeneration, lumbar region
CPT/HCPCS: 72050; 72072; 72100; 73521

== ENCOUNTER 2020-10-28 08:44 | Outpatient (CLI) | payer MEDICARE, SELFPAY ==
[2020-10-28 09:27] LABS: Hematocrit 42.9 % (42.0-52.0); Hemoglobin 13.9 g/dL (14.0-18.0); Mean Corpuscular HGB Conc 32.4 g/dl (32-36); Mean Corpuscular Hemoglobin 29.3 pg (26-34); Mean Corpuscular Volume 90.3 fl (80-100); Mean Platelet Volume 9.2 fl (7.4-10.4); Platelet Count Result 373 k/mm3 (150-375); Red Blood Count 4.75 M/mm3 (4.6-6.20); White Blood Count 10.2 K/mm3 (4.5-10.0)
[2020-10-28 09:51] LABS: Erythrocyte Sedimentation Rate 40 mm/hr (0-20)
[2020-10-28 09:57] LABS: Rheumatoid Factor 19.7 IU/ML (<12)
[2020-10-28 10:38] LABS: Alanine Aminotransferase 14 U/L (4-50); Albumin Level 3.7 g/dL (3.5-5.1); Alkaline Phosphatase 155 U/L (38-126); Anion Gap 7 mmol/L (8-16); Aspartate Amino Transferase 28 U/L (17-59); Bilirubin,Total 0.6 mg/dL (0.2-1.3); Blood Urea Nitrogen 12 mg/dL (9-20); Calcium 9.2 mg/dL (8.4-10.2); Carbon Dioxide 28 mmol/L (22-30); Chloride 108 mmol/L (98-107); Cholesterol 104 mg/dL (0-200); Estimated Glomerular Filt Rate > 60; Glucose 125 mg/dL (75-110); HDL Direct 35 mg/dL; Potassium 4.3 mmol/L (3.4-5.0); Sodium 143 mmol/L (137-145); Triglycerides 115 mg/dL (<150)
[2020-10-28 10:50] LABS: LDL Cholesterol Direct 41 mg/dL
[2020-10-28 11:26] LABS: Hepatitis B Surface Antigen Negative (Negative)
[2020-10-28 11:32] LABS: HAV RESULT Negative (Negative); Hepatitis B Core IgM Result Negative (Negative)
[2020-10-28 11:43] LABS: Hepatitis C Virus Antibody Negative (Negative)
[2020-10-28 12:39] LABS: Free T4 Free Thyroxine 1.22 ng/mL (0.78-2.19)
== END 2020-10-28 08:45 | disposition home or self-care (01) ==
PROVIDERS: PCP Emergency Medicine; Visit Provider Emergency Medicine
DX: R10.9 Unspecified abdominal pain (principal); F41.9 Anxiety disorder, unspecified; M12.9 Arthropathy, unspecified; M54.5 Low back pain; F32.9 Major depressive disorder, single episode, unspecified
CPT/HCPCS: 36415; 80053; 80061; 80074; 84439; 84443; 85027; 85652; 86038; 86430

== ENCOUNTER 2020-10-30 10:13 | Outpatient (NON) | payer MEDICARE, SELFPAY ==
[2020-10-30 10:49] LABS: IFOB Positive Control Positive; Immunochemical Fecal Occult Bl Negative (N)
== END 2020-10-30 10:14 ==
PROVIDERS: PCP Emergency Medicine; Visit Provider Emergency Medicine
DX: R10.9 Unspecified abdominal pain (principal); F41.9 Anxiety disorder, unspecified; M12.9 Arthropathy, unspecified; M54.5 Low back pain; F32.9 Major depressive disorder, single episode, unspecified
CPT/HCPCS: 82274

== ENCOUNTER 2021-04-29 09:37 | Outpatient (CLI) | payer MEDICARE, SELFPAY ==
--- NOTE | ~2021-04-29 | CT_ITS ---
EXAMINATION: CT lumbar spine wo con EXAM DATE: 04/29/2021 10:07 INDICATION: Chronic back pain, malignant neoplasm of dome of bladder . Left leg pain. TECHNIQUE: Spiral CT of the lumbar spine was performed without contrast. Axial, coronal and sagittal images lumbar spine were reviewed. The dose-length product (DLP) for this examination was 568.17 mG y-cm. The exposure was tailored according to patient size (auto mA exposure control), and iterative reconstruction (ASIR) was used as additional dose reduction technique. Comparison is made to prior e xamination from 10/23/2014. FINDINGS: Vertebral body and disc heights are well-maintained. The vertebral bodies are aligned in th e AP dimension. There are no acute fractures identified. Aortoiliac endograft. No spondylolysis. Sacr um unremarkable. Level by level evaluation: T12-L1: Disc does not extend beyond the endplate margin. Facet arthropathy: None. Neural foraminal stenosis: No stenosis. Central canal stenosis: No stenosis. L1-L2: There is a minimal diffuse disc bulge. Facet arthropathy: Mild. Neural foraminal stenosis: Mild left. Central canal stenosis: No stenosis. L2-L3: There is a mild diffuse disc bulge. Facet arthropathy: Mild. Neural foraminal stenosis: Mild to moderate left. Central canal stenosis: Mild. L3-L4: There is a mild to moderate diffuse disc bulge. Facet arthropathy: Mild to moderate. Neural foraminal stenosis: Mild to moderate bilateral. Central canal stenosis: Moderate. L4-L5: There is a moderate diffuse disc bulge. Facet arthropathy: Severe right, moderate left. Neural foraminal stenosis: Mild to moderate bilateral. Central canal stenosis: Moderate to severe. L5-S1: There is a mild diffuse disc bulge. Facet arthropathy: Moderate bilateral. Neural foraminal stenosis: Mild right. Central canal stenosis: Mild. Minimal progression in spondylosis compared to previous exam. IMPRESSION: 1. L4-5 moderate to severe central canal stenosis. Reviewed, dictated and finalized at location B.
== END 2021-04-29 09:38 ==
PROVIDERS: PCP Emergency Medicine
DX: C67.1 Malignant neoplasm of dome of bladder (principal); M48.061 Spinal stenosis, lumbar region without neurogenic claudication
CPT/HCPCS: 72131

== ENCOUNTER 2021-06-24 11:23 | Outpatient (CLI) | payer MEDICARE, SELFPAY ==
[2021-06-24 11:41] LABS: Basophils Absolute Auto 0.1 K/mm3 (0.0-0.1); Basophils Percent Auto 0.9 % (0.2-1.2); Eosinophils Absolute Auto 0.3 K/mm3 (0-0.3); Eosinophils Percent Auto 3.1 % (0-4.4); Hematocrit 44.7 % (42.0-52.0); Hemoglobin 14.5 g/dL (14.0-18.0); Immature Granulocyte Absolute 0.07 K/mm3 (0.00-0.031); Immature Granulocyte Percent A 0.7 % (0-0.5); Lymphocytes Absolute Auto 1.81 K/mm3 (0.9-3.2); Lymphocytes Percent Auto 17.8 % (18.3-44.2); Mean Corpuscular HGB Conc 32.4 g/dl (32-36); Mean Corpuscular Hemoglobin 29.5 pg (26-34); Mean Corpuscular Volume 90.9 fl (80-100); Mean Platelet Volume 8.5 fl (7.4-10.4); Monocytes Percent Auto 9.9 % (2.6-8.5); Neutrophils Absolute Auto 6.9 K/mm3 (1.3-6.7); Neutrophils Percent Auto 67.6 % (45.5-73.1); Platelet Count Result 306 k/mm3 (150-375); Red Blood Count 4.92 M/mm3 (4.6-6.20); Red Cell Distribution Width 14.2 % (11.5-14.5); White Blood Count 10.2 K/mm3 (4.5-10.0)
[2021-06-24 12:43] LABS: Alanine Aminotransferase 26 U/L (4-50); Albumin Level 4.6 g/dL (3.5-5.1); Alkaline Phosphatase 164 U/L (38-126); Anion Gap 13 mmol/L (8-16); Aspartate Amino Transferase 33 U/L (17-59); Bilirubin,Total 0.4 mg/dL (0.2-1.3); Blood Urea Nitrogen 15 mg/dL (9-20); CRP 0.9 mg/dL (<1.0); Calcium 9.8 mg/dL (8.4-10.2); Carbon Dioxide 30 mmol/L (22-30); Chloride 97 mmol/L (98-107); Estimated Glomerular Filt Rate > 60; Glucose 106 mg/dL (65-110); Potassium 3.7 mmol/L (3.4-5.0); Sodium 140 mmol/L (137-145)
[2021-06-24 12:49] LABS: Erythrocyte Sedimentation Rate 11 mm/hr (0-20)
[2021-06-30 10:44] LABS: BCR/abl Prior Result Not Given
[2021-06-30 11:32] LABS: BCR/abl P190 Not Detected; BCR/abl P210 Not Detected
[2021-06-30 11:33] LABS: BCR/abl P190 Chg YES; BCR/abl P210 Chg YES
== END 2021-06-24 11:24 | disposition home or self-care (01) ==
LOC: ANHLAB 11:24
PROVIDERS: PCP Emergency Medicine; Visit Provider Internal Medicine Hematology & Oncology
DX: D72.829 Elevated white blood cell count, unspecified (principal)
CPT/HCPCS: 36415; 80053; 81206; 81207; 85025; 85652; 86140; 88184

== ENCOUNTER 2021-08-12 12:10 | Emergency (ER) | payer MEDICARE, SELFPAY ==
--- NOTE | ~2021-08-12 | XR_ITS ---
EXAMINATION: XR hip LT 2V w AP pelvis INDICATION: Left hip pain after fall TECHNIQUE: AP view the pelvis and two views of the left hip are obtained. COMPARISON: 10/26/2020 FINDINGS: There is antegrade intramedullary michelle and interlocking intratrochanteric screw fixation of the left femur. No acute fracture is identified. There is moderate osteoarthritis of the hips. A par tially imaged bifurcated endoluminal aortic stent graft is noted. There is calcified atherosclerosis. Phleboliths are present in the pelvis. IMPRESSION: 1. No acute osseous abnormality. Reviewed, dictated and finalized at [facility]. R REWINDER
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
[2021-08-12 12:16] VITALS: BP 104/59; PULSE 102; RESP 16; TEMP 36.6; O2SAT 98
== END 2021-08-12 13:28 | disposition home or self-care (01) ==
PROVIDERS: Emergency Provider Nurse Practitioner
DX: S79.912A Unspecified injury of left hip, initial encounter (principal); W01.0XXA Fall on same level from slipping, tripping and stumbling without subsequent striking against object, initial encounter; N40.0 Benign prostatic hyperplasia without lower urinary tract symptoms; J44.9 Chronic obstructive pulmonary disease, unspecified; M10.9 Gout, unspecified; E78.5 Hyperlipidemia, unspecified; I10 Essential (primary) hypertension; M19.90 Unspecified osteoarthritis, unspecified site; M48.00 Spinal stenosis, site unspecified; Z85.118 Personal history of other malignant neoplasm of bronchus and lung; Z90.2 Acquired absence of lung [part of]; Z85.51 Personal history of malignant neoplasm of bladder; F41.9 Anxiety disorder, unspecified
CPT/HCPCS: 73502; 99213; G0463

== ENCOUNTER 2022-06-27 15:53 | Emergency (ER) | payer MEDICARE, SELFPAY ==
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
[2022-06-27 15:59] VITALS: BP 134/89; PULSE 74; RESP 18; TEMP 36.7; O2SAT 99
[2022-06-27] MEDS: SODIUM CHLORIDE 0.9% IV 1,000 ML 999 ML IV CONT (16:50)
[2022-06-27 17:06] LABS: Basophils Absolute Auto 0.1 K/mm3 (0.0-0.1); Basophils Percent Auto 0.9 % (0.2-1.2); Eosinophils Absolute Auto 0.4 K/mm3 (0-0.3); Eosinophils Percent Auto 5.5 % (0-4.4); Hematocrit 43.7 % (42.0-52.0); Hemoglobin 14.4 g/dL (14.0-18.0); Immature Granulocyte Absolute 0.06 K/mm3 (0.00-0.031); Immature Granulocyte Percent A 0.8 % (0-0.5); Lymphocytes Absolute Auto 1.72 K/mm3 (0.9-3.2); Lymphocytes Percent Auto 22.5 % (18.3-44.2); Mean Corpuscular Hemoglobin 29.6 pg (26-34); Mean Corpuscular Volume 89.7 fl (80-100); Mean Platelet Volume 8.5 fl (7.4-10.4); Monocytes Absolute Auto 0.7 K/mm3 (0.1-0.6); Monocytes Percent Auto 9.5 % (2.6-8.5); Neutrophils Absolute Auto 4.7 K/mm3 (1.3-6.7); Neutrophils Percent Auto 60.8 % (45.5-73.1); Platelet Count Result 261 k/mm3 (150-375); Red Blood Count 4.87 M/mm3 (4.6-6.20); Red Cell Distribution Width 14.1 % (11.5-14.5); White Blood Count 7.7 K/mm3 (4.5-10.0)
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
[2022-06-27 17:17] LABS: Ethanol 171 mg/dL (<10); Partial Thromboplastin Time 24.5 SECONDS (22.3-36.8); Prothrombin Time 12.5 Seconds (11.1-14.7)
[2022-06-27 17:22] LABS: Alanine Aminotransferase 21 U/L (6-50); Albumin Level 4.2 g/dL (3.5-5.1); Alkaline Phosphatase 139 U/L (38-126); Anion Gap 15 mmol/L (8-16); Aspartate Amino Transferase 39 U/L (17-59); Bilirubin,Total 0.6 mg/dL (0.2-1.3); Blood Urea Nitrogen 9 mg/dL (9-20); Calcium 8.7 mg/dL (8.4-10.2); Carbon Dioxide 32 mmol/L (22-30); Chloride 99 mmol/L (98-107); Estimated Glomerular Filt Rate > 60; Glucose 104 mg/dL (65-110); Potassium 2.7 mmol/L (3.4-5.0); Sodium 146 mmol/L (137-145)
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
[2022-06-27 17:29] LABS: Troponin I < 0.012 ng/mL (0.000-0.034)
[2022-06-27 17:32] VITALS: PULSE 81; RESP 17; O2SAT 98
--- NOTE | 2022-06-27 17:55 | PC.NURSE ---
Patient received IV access. Bleeding being controlled
--- NOTE | 2022-06-27 18:00 | PC.NURSE ---
ED security in room
--- NOTE | 2022-06-27 18:11 | PC.NURSE ---
Patient trying to climb out of bed, able to be redirected back to bed.
[2022-06-27] MEDS: POTASSIUM CHLORIDE 20 MEQ PACKET (FOR LIQUID) 40 MEQ PO (18:18)
--- NOTE | 2022-06-27 18:24 | PC.NURSE ---
Patient continues to be uncooperative and refusing to have vitals taken. Attempted to have patient on panel monitor multiple times but patient removing leads.
--- NOTE | 2022-06-27 18:28 | PC.NURSE ---
EDP Thomas aware patient does not have IV access at this time. Patient refusing IV placement.
[2022-06-27 20:24] LABS: Ethanol 97 mg/dL (<10)
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
== END 2022-06-27 21:16 ==
PROVIDERS: Emergency Provider Emergency Medicine
DX: F10.129 Alcohol abuse with intoxication, unspecified (principal); E87.6 Hypokalemia; Y90.6 Blood alcohol level of 120-199 mg/100 ml; J44.9 Chronic obstructive pulmonary disease, unspecified; E78.5 Hyperlipidemia, unspecified; I10 Essential (primary) hypertension; N40.0 Benign prostatic hyperplasia without lower urinary tract symptoms; M19.90 Unspecified osteoarthritis, unspecified site; F41.9 Anxiety disorder, unspecified; Z85.118 Personal history of other malignant neoplasm of bronchus and lung; Z90.2 Acquired absence of lung [part of]; Z85.51 Personal history of malignant neoplasm of bladder; Z92.21 Personal history of antineoplastic chemotherapy; Z87.442 Personal history of urinary calculi; Z87.891 Personal history of nicotine dependence; Z79.82 Long term (current) use of aspirin; Z79.899 Other long term (current) drug therapy; W10.9XXA Fall (on) (from) unspecified stairs and steps, initial encounter; V47.5XXA Car driver injured in collision with fixed or stationary object in traffic accident, initial encounter
CPT/HCPCS: 36415; 70450; 80053; 80307; 84484; 85025; 85610; 85730; 96360; 99284; A9270; J7030

== ENCOUNTER 2022-06-28 20:54 | Emergency (ER) | payer MEDICARE, SELFPAY ==
[2022-06-28 21:00] VITALS: BP 151/86; PULSE 70; RESP 14; TEMP 36.6; O2SAT 97
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
--- NOTE | 2022-06-28 21:23 | PC.NURSE ---
Pt. denies having any complaints. Pt. continues to state he will theron everyone. [facility] and [facility] at bedside.
[2022-06-28 22:11] VITALS: BP 170/86; PULSE 80; RESP 12; O2SAT 98
== END 2022-06-28 22:13 ==
PROVIDERS: Emergency Provider Emergency Medicine
DX: Z04.1 Encounter for examination and observation following transport accident (principal); R45.4 Irritability and anger; N40.0 Benign prostatic hyperplasia without lower urinary tract symptoms; J44.9 Chronic obstructive pulmonary disease, unspecified; E78.5 Hyperlipidemia, unspecified; I10 Essential (primary) hypertension; M10.9 Gout, unspecified; M19.90 Unspecified osteoarthritis, unspecified site; F41.9 Anxiety disorder, unspecified; Z85.51 Personal history of malignant neoplasm of bladder; Z85.118 Personal history of other malignant neoplasm of bronchus and lung; Z92.21 Personal history of antineoplastic chemotherapy; Z87.442 Personal history of urinary calculi; Z90.2 Acquired absence of lung [part of]; Z87.891 Personal history of nicotine dependence; Z79.82 Long term (current) use of aspirin; V48.5XXA Car driver injured in noncollision transport accident in traffic accident, initial encounter
CPT/HCPCS: 99283